=== PATIENT | female | born 1960 | race Caucasian/White ===

== ENCOUNTER → 2020-07-24 | Outpatient (CLI) | payer BC | END | disposition home or self-care (01) | LOC: LABWHC1 09:20 | PROVIDERS: ATTEND Internal Medicine Infectious Disease | DX: Z03.89 Encounter for observation for other suspected diseases and conditions ruled out (principal) | CPT/HCPCS: U0003; C9803 ==

== ENCOUNTER 2023-04-02 13:42 | Emergency (ER) | payer BC ==
--- NOTE | 2023-04-02 14:30 | ED ---
General Adult HPI - General Source: patient, RN notes reviewed Mode of arrival: ambulatory <Addie Seth - Last Filed: 04/02/23 14:25> <Diaz Pisano - Last Filed: 04/02/23 19:40> - General Chief complaint: Recheck/Abnormal Lab/Rx Stated complaint: High blood pressure Time Seen by Provider: 04/02/23 14:25 - History of Present Illness Initial comments: 62-year-old female with no significant past medical history presents the emergency department with a chief complaint of high blood pressure. Patient denies taking any blood pressure medications. Patient denies dizziness, lightheadedness, headache, chest pain, shortness of breath (Addie Seth) This is a 62-year-old female presents emergency Department complaining that her blood pressures been elevated. Patient states she was feeling little dizzy she stood up blood pressure was extremely elevated so she decided come to the emerge ncy department. Patient denies any headache patient denies numbness weakness. Patient denies any chest pain palpitations difficulty breathing shortness of breath. Patient states she has no history of high blood pressure but she does not take her blood pressure regularly. Patient denies any recent fever chills or cough. Patient does complain of a twitching occasionally gets in her lower leg it lasts about 1-2 seconds. Patient states he symptoms been ongoing for over a week intermittently she has not had the symptoms while in the emergency department. Patient denies any injury recently. (Diaz Pisano) - Related Data Previous Rx's Medication Instructions Recorded amLODIPine [Norvasc] 5 mg PO DAILY #30 tab 04/02/23 Allergies Allergy/AdvReac Type Severity Reaction Status Date / Time No Known Allergies Allergy Verified 04/02/23 19:03 Review of Systems ROS Other: All systems not noted in ROS Statement are negative. <Addie Seth - Last Filed: 04/02/23 14:25> ROS Other: All systems not noted in ROS Statement are negative. <Diaz Pisano - Last Filed: 04/02/23 19:40> ROS Statement: Those systems with pertinent positive or pertinent negative responses have been documented in the HPI. Past Medical History Past Medical History: No Reported History History of Any Multi-Drug Resistant Organisms: MRSA Past Surgical History: No Surgical Hx Reported Past Psychological History: No Psychological Hx Reported Smoking Status: Never smoker Past Alcohol Use History: Rare Past Drug Use History: None Reported <MarthacandaceAddie esquivel - Last Filed: 04/02/23 14:25> General Exam <MarthacandaceAddie esquivel - Last Filed: 04/02/23 14:25> <Diaz Pisano - Last Filed: 04/02/23 19:40> - General Exam Comments Initial Comments: Visual Physical Exam Vital signs reviewed General: Well-appearing, nontoxic, no acute distress. Head: Normocephalic, atraumatic Eyes: PERRLA, EOMI ENT: Airway patent Chest: Nonlabored breathing Skin: No visual rash, normal skin tone Neuro: Alert and oriented 3 Musculoskeletal: No gross abnormalities (Addie Seth) GENERAL: Patient is well-developed and well-nourished. Patient is nontoxic and well- hydrated and is in no acute distress. ENT: Neck is soft and supple. No significant lymphadenopathy is noted. Oropharynx is clear. Moist mucous membranes. Neck has full range of motion without eliciting any pain. EYES: The sclera were anicteric and conjunctiva were pink and moist. Extraocular movements were intact and pupils were equal round and reactive to light. Eyelids were unremarkable. PULMONARY: Unlabored respirations. Good breath sounds bilaterally. No audible rales rhonchi or wheezing was noted. CARDIOVASCULAR: There is a regular rate and rhythm without any murmurs gallops or rubs. ABDOMEN: Soft and nontender with normal bowel sounds. SKIN: Skin is clear with no lesions or rashes and otherwise unremarkable. NEUROLOGIC: Patient is alert and oriented x3. Cranial nerves II through XII are grossly intact. Motor and sensory are also intact. Normal speech, volume and content. Symmetrical smile. MUSCULOSKELETAL: Normal extremities with adequate strength and full range of motion. LYMPHATICS: No significant lymphadenopathy is noted PSYCHIATRIC: Normal psychiatric evaluation. (Diaz Pisano) Course Vital Signs 04/02/23 04/02/23 04/02/23 13:45 15:37 15:47 Temperature 99.8 F H 98.2 F Pulse Rate 97 75 78 Respiratory 18 19 17 Rate Blood Pressure 199/118 191/119 163/71 O2 Sat by Pulse 95 95 95 Oximetry 04/02/23 04/02/23 16:36 16:50 Temperature 98.1 F Pulse Rate 71 Respiratory 18 Rate Blood Pressure 167/70 143/68 O2 Sat by Pulse 97 Oximetry Medical Decision Making - Lab Data Result diagrams: 04/02/23 14:30 04/02/23 14:30 <Diaz Pisano - Last Filed: 04/02/23 19:40> - Medical Decision Making Patient's EKG shows a sinus rhythm at 84 bpm WV interval 165 QRSs 80 QT interval 31 QTC is 422. Patient's EKG shows no ST segment elevation or depression. Was pt. sent in by a medical professional or institution (, PA, WING COVERER, urgent care, hospital, or residential...) When possible be specific @ -No Did you speak to anyone other than the patient for history (EMS, parent, family, police, friend...)? What history was obtained from this source @ -No Did you review nursing and triage notes (agree or disagree)? Why? @ -I reviewed and agree with nursing and triage notes Were old charts reviewed (outside hosp., previous admission, EMS record, old EKG, old radiological studies, urgent care reports/EKG's, residential records)? Report findings @ -I reviewed prior lab work and prior radiological studies. Differential Diagnosis (chest pain, altered mental status, abdominal pain women, abdominal pain men, vaginal bleeding, weakness, fever, dyspnea, syncope, headache, dizziness, GI bleed, back pain, seizure, CVA, palpatations, mental health, musculoskeletal)? @ -Differential Dizziness: Benign paroxysmal positional Vertigo, Menieres disease, otitis media, acoustic neuroma, vertebrobasilar insufficiency, cerebellar stroke, encephalitis, hypovolemic, arrhythmia, coronary artery syndrome, anemia, this is not meant to be an all-inclusive list EKG interpreted by me (3pts min.). @ -As above X-rays interpreted by me (1pt min.). @ -Chest x-ray was interpreted by myself I see no acute abnormalities CT interpreted by me (1pt min.). @ -None done U/S interpreted by me (1pt. min.). @ -None done What testing was considered but not performed or refused? (CT, X-rays, U/S, labs)? Why? @ -None What meds were considered but not given or refused? Why? @ -None Did you discuss the management of the patient with other professionals (professionals i.e. Dr., PA, WING COVERER, lab, RT, psych nurse, social media intern, intellectual property lawyer, teacher, giving officer, watch caser)? Give summary @ -No Was smoking cessation discussed for >3mins.? @ -No Was critical care preformed (if so, how long)? @ -No Were there social determinants of health that impacted care today? How? (Homelessness, low income, unemployed, alcoholism, drug addiction, transportation, low edu. Level, literacy, decrease access to med. care, long-term, rehab)? @ -No Was there de-escalation of care discussed even if they declined (Discuss DNR or withdrawal of care, Hospice)? DNR status @ -No What co-morbidities impacted this encounter? (DM, HTN, Smoking, COPD, CAD, Cancer, CVA, ARF, Chemo, Hep., AIDS, mental health diagnosis, sleep apnea, morbid obesity)? @ -None Was patient admitted / discharged? Hospital course, mention meds given and route, prescriptions, significant lab abnormalities, going to OR and other pertinent info. @ -Patient was given hydralazine 10 mg and pressure only given a little so the patient was given a repeat dose of 10 mg. I went back in and reevaluated the patient she was having no symptoms at this time and I discharge the patient I told the patient we'll start her on Norvasc and she states her blood pressure 4 times a day at the same time and then follow up with primary medical care doctor. Patient is to return to the hospital this any chest pain shortness of breath or any new symptoms. Undiagnosed new problem with uncertain prognosis? @ -No Drug Therapy requiring intensive monitoring for toxicity (Heparin, Nitro, Insulin, Cardizem)? @ -No Were any procedures done? @ -No Diagnosis/symptom? @ -Hypertension Acute, or Chronic, or Acute on Chronic? @ -Acute Uncomplicated (without systemic symptoms) or Complicated (systemic symptoms)? @ -Complicated Side effects of treatment? @ -No Exacerbation, Progression, or Severe Exacerbation? @ -No Poses a threat to life or bodily function? How? (Chest pain, [place], [place], pneumonia, PE, COPD, DKA, ARF, appy, cholecystitis, CVA, Diverticulitis, Homicidal, Suicidal, threat to staff... and all critical care pts) @ -No (PisanoDiaz) - Lab Data Lab Results 04/02/23 04/02/23 04/02/23 Range/Units 14:30 14:30 14:30 WBC 10.8 H (3.8-10.6) k/uL RBC 4.74 (3.80-5.40) m/uL Hgb 15.0 (11.4-16.0) gm/dL Hct 44.1 (34.0-46.0) % MCV 93.1 (80.0-100.0) fL MCH 31.7 (25.0-35.0) pg MCHC 34.0 (31.0-37.0) g/dL RDW 13.4 (11.5-15.5) % Plt Count 316 (150-450) k/uL MPV 7.4 Neutrophils % 66 % Lymphocytes % 23 % Monocytes % 5 % Eosinophils % 1 % Basophils % 0 % Neutrophils # 7.1 (1.3-7.7) k/uL Lymphocytes # 2.5 (1.0-4.8) k/uL Monocytes # 0.6 (0-1.0) k/uL Eosinophils # 0.1 (0-0.7) k/uL Basophils # 0.0 (0-0.2) k/uL PT 10.3 (9.0-12.0) sec INR 1.0 (<1.2) APTT 24.1 (22.0-30.0) sec Sodium 140 (137-145) mmol/L Potassium 4.5 (3.5-5.1) mmol/L Chloride 104 (98-107) mmol/L Carbon Dioxide 24 (22-30) mmol/L Anion Gap 12 mmol/L BUN 21 H (7-17) mg/dL Creatinine 0.75 (0.52-1.04) mg/dL Est GFR (CKD-EPI)AfAm >90 (>60 ml/min/1.73 sqM) Est GFR (CKD-EPI)NonAf 87 (>60 ml/min/1.73 sqM) Glucose 104 H (74-99) mg/dL Calcium 10.2 (8.4-10.2) mg/dL Total Bilirubin 0.6 (0.2-1.3) mg/dL AST 25 (14-36) U/L ALT 22 (4-34) U/L Alkaline Phosphatase 102 (38-126) U/L Troponin I (0.000-0.034) ng/mL Total Protein 7.6 (6.3-8.2) g/dL Albumin 4.6 (3.5-5.0) g/dL Urine Color Urine Appearance (Clear) Urine pH (5.0-8.0) Ur Specific [place] (1.001-1.035) Urine Protein (Negative) Urine Glucose (UA) (Negative) Urine Ketones (Negative) Urine Blood (Negative) Urine Nitrite (Negative) Urine Bilirubin (Negative) Urine Urobilinogen (<2.0) mg/dL Ur Leukocyte Esterase (Negative) Urine WBC (0-5) /hpf Ur Squamous Epith Cells (0-4) /hpf Urine Bacteria (None) /hpf Urine Mucus (None) /hpf 04/02/23 04/02/23 Range/Units 14:30 15:32 WBC (3.8-10.6) k/uL RBC (3.80-5.40) m/uL Hgb (11.4-16.0) gm/dL Hct (34.0-46.0) % MCV (80.0-100.0) fL MCH (25.0-35.0) pg MCHC (31.0-37.0) g/dL RDW (11.5-15.5) % Plt Count (150-450) k/uL MPV Neutrophils % % Lymphocytes % % Monocytes % % Eosinophils % % Basophils % % Neutrophils # (1.3-7.7) k/uL Lymphocytes # (1.0-4.8) k/uL Monocytes # (0-1.0) k/uL Eosinophils # (0-0.7) k/uL Basophils # (0-0.2) k/uL PT (9.0-12.0) sec INR (<1.2) APTT (22.0-30.0) sec Sodium (137-145) mmol/L Potassium (3.5-5.1) mmol/L Chloride (98-107) mmol/L Carbon Dioxide (22-30) mmol/L Anion Gap mmol/L BUN (7-17) mg/dL Creatinine (0.52-1.04) mg/dL Est GFR (CKD-EPI)AfAm (>60 ml/min/1.73 sqM) Est GFR (CKD-EPI)NonAf (>60 ml/min/1.73 sqM) Glucose (74-99) mg/dL Calcium (8.4-10.2) mg/dL Total Bilirubin (0.2-1.3) mg/dL AST (14-36) U/L ALT (4-34) U/L Alkaline Phosphatase (38-126) U/L Troponin I <0.012 (0.000-0.034) ng/mL Total Protein (6.3-8.2) g/dL Albumin (3.5-5.0) g/dL Urine Color Light Yellow Urine Appearance Cloudy H (Clear) Urine pH 5.0 (5.0-8.0) Ur Specific [place] 1.012 (1.001-1.035) Urine Protein Negative (Negative) Urine Glucose (UA) Negative (Negative) Urine Ketones Negative (Negative) Urine Blood Negative (Negative) Urine Nitrite Negative (Negative) Urine Bilirubin Negative (Negative) Urine Urobilinogen <2.0 (<2.0) mg/dL Ur Leukocyte Esterase Negative (Negative) Urine WBC 2 (0-5) /hpf Ur Squamous Epith Cells 2 (0-4) /hpf Urine Bacteria Occasional H (None) /hpf Urine Mucus Rare H (None) /hpf Disposition <Addie Seth - Last Filed: 04/02/23 14:25> Is patient prescribed a controlled substance at d/c from ED?: No Time of Disposition: 16:40 <Diaz Pisano - Last Filed: 04/02/23 19:40> Clinical Impression: Hypertension Disposition: HOME SELF-CARE Condition: Good Instructions (If sedation given, give patient instructions): Hypertension (ED) Prescriptions: amLODIPine [Norvasc] 5 mg PO DAILY #30 tab Referrals: Aubrey Smith MD [Primary Care Provider] - 1-2 days
[2023-04-02 15:00] LABS: Basophils % (A) 0 %; Eosinophils # (A) 0.1 k/uL (0-0.7); Eosinophils % (A) 1 %; HCT 44.1 % (34.0-46.0); Lymphocytes # (A) 2.5 k/uL (1.0-4.8); Lymphocytes % (A) 23 %; MCH 31.7 pg (25.0-35.0); MCV 93.1 fL (80.0-100.0); Mean Platelet Volume 7.4; Monocytes # (A) 0.6 k/uL (0-1.0); Monocytes % (A) 5 %; Neutrophils # (A) 7.1 k/uL (1.3-7.7); Neutrophils % (A) 66 %; Platelet Count 316 k/uL (150-450); RBC 4.74 m/uL (3.80-5.40); RDW 13.4 % (11.5-15.5); WBC 10.8 k/uL (3.8-10.6)
[2023-04-02 15:15] LABS: Partial Thromboplastin Time 24.1 sec (22.0-30.0); Prothrombin Time 10.3 sec (9.0-12.0)
[2023-04-02] MEDS ORDERED: hydrALAZINE HCL 20 MG/ML 1 ML VIAL IVP STA ×2 (15:15→16:11)
[2023-04-02] MEDS ORDERED: SODIUM CHLORIDE 0.9% 500 ML 500 ML IV ONE (15:16)
[2023-04-02 15:19] LABS: ALT 22 U/L (4-34); AST 25 U/L (14-36); African American GFR (CKD) >90 (>60 ml/min/1.73 sqM); Albumin 4.6 g/dL (3.5-5.0); Alkaline Phosphatase 102 U/L (38-126); Anion Gap 12 mmol/L; Blood Urea Nitrogen 21 mg/dL (7-17); Calcium 10.2 mg/dL (8.4-10.2); Carbon Dioxide 24 mmol/L (22-30); Chloride 104 mmol/L (98-107); Glucose 104 mg/dL (74-99); Non-African American GFR(CKD) 87 (>60 ml/min/1.73 sqM); Potassium 4.5 mmol/L (3.5-5.1); Sodium 140 mmol/L (137-145); Total Bilirubin 0.6 mg/dL (0.2-1.3); Total Protein 7.6 g/dL (6.3-8.2)
[2023-04-02 16:01] LABS: Appearance,Urine Cloudy (Clear); Bacteria,Urine Occasional /hpf; Bilirubin,Urine Negative (Negative); Blood,Urine Negative (Negative); Color,Urine Light Yellow; Glucose,Urine (UA) Negative (Negative); Ketones,Urine Negative (Negative); Leukocyte Esterase,Urine Negative (Negative); Mucus,Urine Rare /hpf; Nitrite,Urine Negative (Negative); Protein,Urine Negative (Negative); Specific Gravity,Urine 1.012 (1.001-1.035); Squamous Epithelial Cell,Urine 2 /hpf (0-4); Urobilinogen,Urine <2.0 mg/dL (<2.0); WBC,Urine 2 /hpf (0-5)
--- NOTE | 2023-04-02 16:14 | XR ---
EXAMINATION TYPE: XR chest 2V DATE OF EXAM: 04/02/2023 COMPARISON: NONE HISTORY: Difficulty in breathing. Hypertension. TECHNIQUE: Frontal and lateral views of the chest are obtained. FINDINGS: There is no focal air space opacity, pleural effusion, or pneumothorax seen. The cardiac silhouette size is upper limits of normal. The osseous structures are intact. Cholecystectomy clips are present. IMPRESSION: No acute cardiopulmonary process.
[2023-04-02 16:37] VITALS: PULSE 71; RESP 18; TEMP 98.1
[2023-04-02 16:50] VITALS: BP 143/68
== END 2023-04-02 16:55 | disposition home or self-care (01) ==
LOC: EC 13:42
DX: I10 Essential (primary) hypertension (principal)
CPT/HCPCS: 36415; 93005; 80053; 84484; 85025; 85610; 85730; 81001; 71046; 99284; 96374; 96376; 96361; J0360

== ENCOUNTER 2023-04-02 18:56 | Emergency (ER) | payer BC ==
--- NOTE | 2023-04-02 20:05 | ED ---
Dizziness HPI - General Source: patient, RN notes reviewed Mode of arrival: ambulatory <Karla Saldana - Last Filed: 04/02/23 20:00> - General Source: patient, RN notes reviewed, old records reviewed <Justin Zeng - Last Filed: 04/02/23 23:58> - General Chief Complaint: Dizziness Stated Complaint: R leg weakness dizzy Time Seen by Provider: 04/02/23 20:00 - History of Present Illness Initial Comments: Patient is a 62-year-old female presents to the emergency department for lightheadedness. Patient was discharged from emergency department to hours ago for dizziness and high blood pressure. She has no known history of high blood pressure. Patient got home she felt very lightheaded and fell. She did not hit her head or lose consciousness. She does not use blood thinners. (Karla Saldana) Patient was seen as a quick note. Was seen here earlier for hypertension and lightheadedness which improved from when home and expressed another episode. Is not on blood thinners. States she felt lightheaded suddenly at home and then fell. Has been having chronic right lower extremity weakness which seems to be primarily at the knee she states. Denies any back pain or injury. Denies any current complaints of lightheadedness. Denies any sensory deficits. There is any no injuries. Patient diagnosed with hypertension earlier and placed on blood pressure medications. Uncertain if this injury to her symptoms. Blood pressure is the same as it was on discharge. Presents for reevaluation at this time. Denies any fevers, chills, cough. Denies any chest pain or shortness of breath. Denies any abdominal pain, nausea, vomiting.When I asked further about the patient's right lower extremity weakness and pain, seems to be more progre ssive as it has been present for multiple weeks. Thinks it may have been a little bit worse which caused her to fall earlier. Denies any current dizziness. (Justin Zeng) - Related Data Previous Rx's Medication Instructions Recorded amLODIPine [Norvasc] 5 mg PO DAILY #30 tab 04/02/23 Allergies Allergy/AdvReac Type Severity Reaction Status Date / Time No Known Allergies Allergy Verified 04/02/23 19:03 Review of Systems ROS Other: All systems not noted in ROS Statement are negative. <Karla Saldana - Last Filed: 04/02/23 20:00> ROS Other: All systems not noted in ROS Statement are negative. <Justin Zeng - Last Filed: 04/02/23 23:58> ROS Statement: Those systems with pertinent positive or pertinent negative responses have been documented in the HPI. Review of Systems: CONST: Denies fever EYES: Denies blurry vision ENT: Denies nasal congestion C/V: Denies Chest pain RESP: Denies shortness of breath GI: Denies abdominal pain : Denies dysuria SKIN: Denies rash. MSK: Endorses right knee pain, weakness. NEURO: Denies headache (Justin Zeng) Past Medical History Past Medical History: No Reported History History of Any Multi-Drug Resistant Organisms: MRSA Past Surgical History: No Surgical Hx Reported Past Psychological History: No Psychological Hx Reported Smoking Status: Never smoker Past Alcohol Use History: Rare Past Drug Use History: None Reported <ShanaKarla ahn - Last Filed: 04/02/23 20:00> General Exam <ShanaKarla ahn - Last Filed: 04/02/23 20:00> <Justin Zeng - Last Filed: 04/02/23 23:58> - General Exam Comments Initial Comments: Visual Physical Exam Vital signs reviewed General: Well-appearing, nontoxic, no acute distress. Head: Normocephalic, atraumatic Eyes: PERRLA, EOMI ENT: Airway patent Chest: Nonlabored breathing Skin: No visual rash, normal skin tone Neuro: Alert and oriented 3 Musculoskeletal: No gross abnormalities (ShanaJuanKarla) General: Appears in no acute distress. HEAD: Normal with no signs of head trauma. EYES: PERRLA, EOMI, conjunctiva normal, no discharge. Pupils 3 mm and equal bilaterally. ENT: Hearing grossly intact, normal oropharynx. RESPIRATORY: Clear breath sounds bilaterally. No wheezes, rales, or rhonchi. C/V: Regular rate and rhythm. S1 and S2 auscultated, no edema, peripheral pulses 2+ and intact throughout ABD: Abd is soft, nontender, nondistended EXT: Normal range of motion, no obvious deformity. Mild to palpation along the bilateral joint lines of the right knee. No midline lumbar, thoracic, cervical spine tenderness to palpation. SKIN: No rashes or lesions observed on exposed skin. NEURO: Alert and oriented x 4. Cranial nerves II-XII intact. No focal sensory or strength deficits. NIH of 0. GCS of 15. Patient's gait has a right lower extremity limp. (Justin Zeng) Course Vital Signs 04/02/23 04/02/23 19:00 23:31 Temperature 97.9 F 98.6 F Pulse Rate 99 78 Respiratory 18 16 Rate Blood Pressure 164/76 136/78 O2 Sat by Pulse 95 98 Oximetry Medical Decision Making - Lab Data Result diagrams: 04/02/23 21:35 - EKG Data -: EKG Interpreted by Me <Justin Zeng - Last Filed: 04/02/23 23:58> - Medical Decision Making Was pt. sent in by a medical professional or institution (, PA, MAINTENANCE AND OPERATIONS SUPERVISOR, urgent care, hospital, or long term...) When possible be specific @ -No Did you speak to anyone other than the patient for history (EMS, parent, family, police, friend...)? What history was obtained from this source @ -No Did you review nursing and triage notes (agree or disagree)? Why? @ -I reviewed and agree with nursing and triage notes Were old charts reviewed (outside hosp., previous admission, EMS record, old EKG, old radiological studies, urgent care reports/EKG's, long term records)? Report findings @ -Reviewed chart from earlier today as this is a repeat visit. Differential Diagnosis (chest pain, altered mental status, abdominal pain women, abdominal pain men, vaginal bleeding, weakness, fever, dyspnea, syncope, headache, dizziness, GI bleed, back pain, seizure, CVA, palpatations, mental health, musculoskeletal)? @ -Differential Dizziness: Benign paroxysmal positional Vertigo, Menieres disease, otitis media, acoustic neuroma, vertebrobasilar insufficiency, cerebellar stroke, encephalitis, hypovolemic, arrhythmia, coronary artery syndrome, anemia, this is not meant to be an all-inclusive list EKG interpreted by me (3pts min.). @ -As above X-rays interpreted by me (1pt min.). @ -Chest x-ray shows no obvious acute cardio pulmonary process. Right knee, and pelvis x-ray revealed no acute injury or acute process. Patient has a history arthritis in the right knee. CT interpreted by me (1pt min.). @ -CT brain shows no obvious intracranial process. Lumbar spine CT shows degenerative changes at almost every level. Possible source for mild nerve compression which could be contributing to symptoms. U/S interpreted by me (1pt. min.). @ -None done What testing was considered but not performed or refused? (CT, X-rays, U/S, labs)? Why? @ -None What meds were considered but not given or refused? Why? @ -None Did you discuss the management of the patient with other professionals (professionals i.e. , PA, MAINTENANCE AND OPERATIONS SUPERVISOR, lab, RT, psych nurse, drug abuse social worker, engineer gas pumping station, teacher, court collections officer, caser shoe parts)? Give summary @ -No Was smoking cessation discussed for >3mins.? @ -No Was critical care preformed (if so, how long)? @ -No Were there social determinants of health that impacted care today? How? (Homelessness, low income, unemployed, alcoholism, drug addiction, transportation, low edu. Level, literacy, decrease access to med. care, group home, r ehab)? @ -No Was there de-escalation of care discussed even if they declined (Discuss DNR or withdrawal of care, Hospice)? DNR status @ -No What co-morbidities impacted this encounter? (DM, HTN, Smoking, COPD, CAD, Cancer, CVA, ARF, Chemo, Hep., AIDS, mental health diagnosis, sleep apnea, morbid obesity)? @ -None Was patient admitted / discharged? Hospital course, mention meds given and route, prescriptions, significant lab abnormalities, going to OR and other pertinent info. @ -Based on the patient's presentation and physical exam, was diagnosed with hypertension poorly and placed on Norvasc. Returns because she had a lightheadedness episode and fell. Did not injure herself. Exam is unchanged. Has chronic right knee and right leg issues for the last few weeks. Has known arthritis in the right knee. Right leg symptoms seem to be chronic, his neuro exam is unremarkable but we will obtain CT brain as well as lumbar spine CT in addition to x-rays of the chest, pelvis, right knee. We'll repeat laboratory studies and EKG. Patient was in agreement with this plan. She'll be given a 1 L fluid bolus. Blood pressure unchanged from earlier. Patient's labs are unremarkable, however CBC needs to be recent. Patient does not want to wait. Patient's electrolytes are unremarkable. Patient's imaging shows no acute process but she does have degenerative changes and lumbar spine which could be contributing to her symptoms as well as arthritis in the right knee. On reevaluation, patient is feeling improved. Dizziness is resolved. We discussed her workup. She does not want to wait for repeat blood work which I think is reasonable as she just had it done earlier. We discussed her results and I believe that her degeneration in her lumbar spine and possible nerve impingement may be contributing to her symptoms as well as her right knee arth ritis. She has no signs of cauda equina syndrome, denying urinary bowel incontinence, denying paralysis, denying saddle anesthesias. Discuss follow-up with a spinal doctor, and she will be given follow-up for it. She was in agreement this plan. She'll like to go home at this time. I recommended holding the blood pressure medication in case this take injury to her lightheadedness earlier, however she was having symptoms before this. Strict return precautions discussed. Recommend following up with her PCP. She was in agreement this plan. I instructed the patient to follow up with their PCP in the next 1-3 days. I provided contact information for follow up with ortho. I explained that the patient should return to the emergency department if they experience any worsening symptoms. Strict return precautions were discussed with the patient. The patient expressed understanding of these instructions. I answered all questions that the patient had. The patient was discharged home in good condition with their prescriptions and follow up information. Undiagnosed new problem with uncertain prognosis? @ -No Drug Therapy requiring intensive monitoring for toxicity (Heparin, Nitro, Insulin, Cardizem)? @ -No Were any procedures done? @ -No Diagnosis/symptom? @ -Lightheadedness, chronic right leg intermittent weakness, knee pain Acute, or Chronic, or Acute on Chronic? @ -Acute on chronic Uncomplicated (without systemic symptoms) or Complicated (systemic symptoms)? @ -Uncomplicated Side effects of treatment? @ -No Exacerbation, Progression, or Severe Exacerbation? @ -No Poses a threat to life or bodily function? How? (Chest pain, [place], [place], pneumonia, PE, COPD, DKA, ARF, appy, cholecystitis, CVA, Diverticulitis, Homicidal, Suicidal, threat to staff... and all critical care pts) @ -No Diagnosis/symptom? @ -Lumbar spine degenerative changes, concern for radiculopathy Acute, or Chronic, or Acute on Chronic? @ -Acute Uncomplicated (without systemic symptoms) or Complicated (systemic symptoms)? @ -Complicated Side effects of treatment? @ -none Exacerbation, Progression, or Severe Exacerbation] @ -no Poses a threat to life or bodily function? @ -no (Justin Zeng) - Lab Data Lab Results 04/02/23 04/02/23 Range/Units 21:35 21:35 PT 10.4 (9.0-12.0) sec INR 1.0 (<1.2) Sodium 140 (137-145) mmol/L Potassium 4.1 (3.5-5.1) mmol/L Chloride 106 (98-107) mmol/L Carbon Dioxide 21 L (22-30) mmol/L Anion Gap 13 mmol/L BUN 20 H (7-17) mg/dL Creatinine 0.63 (0.52-1.04) mg/dL Est GFR (CKD-EPI)AfAm >90 (>60 ml/min/1.73 sqM) Est GFR (CKD-EPI)NonAf >90 (>60 ml/min/1.73 sqM) Glucose 111 H (74-99) mg/dL Calcium 10.3 H (8.4-10.2) mg/dL Total Bilirubin 0.7 (0.2-1.3) mg/dL AST 26 (14-36) U/L ALT 23 (4-34) U/L Alkaline Phosphatase 110 (38-126) U/L Total Protein 7.9 (6.3-8.2) g/dL Albumin 4.8 (3.5-5.0) g/dL - EKG Data EKG Comments: 12-lead Electrocardiogram Interpretation Note EKG was reviewed and interpreted by myself. 12-lead ECG performed at 2135 is interpreted by me as revealing normal sinus rhythm at a rate of 92 beats per minute. Umpire is normal. OH interval is 156 ms, QRS duration is 82 ms, QTc is 418 ms.. There were no ST or T wave abnormalities to suggest myocardial ischemia or injury. R wave progression across the precordium was satisfactory. By my interpretation this EKG is non-diagnostic for acute ischemia. (Justin Zeng) Disposition <Karla Saldana - Last Filed: 05/11/23 20:00> Is patient prescribed a controlled substance at d/c from ED?: No Time of Disposition: 23:21 <Justin Zeng - Last Filed: 04/02/23 23:58> Clinical Impression: Transient right leg weakness, Lumbar radiculopathy, Knee pain, Lightheaded Disposition: HOME SELF-CARE Condition: Good Instructions (If sedation given, give patient instructions): Lumbar Radiculopathy (ED) Referrals: Aubrey Smith MD [Primary Care Provider] - 1-2 days John Jacobs DO [Doctor of Osteopathic Medicine] - 1-2 days
[2023-04-02] MEDS ORDERED: SODIUM CHLORIDE 0.9% 500 ML 500 ML IV STA (21:35)
[2023-04-02 22:19] LABS: Prothrombin Time 10.4 sec (9.0-12.0)
--- NOTE | 2023-04-02 22:21 | CT ---
EXAM: CT Head Without Intravenous Contrast CLINICAL HISTORY: ITS.REASON CT Reason: fall, weakness RLE 1 week TECHNIQUE: Axial computed tomography images of the head/brain without intravenous contrast. CTDI is 49.27 mGy and DLP is 1140.6 mGy-cm. This CT exam was performed using one or more of the following dose reduction techniques: automated exposure control, adjustment of the mA and/or kV according to patient size, and/or use of iterative reconstruction technique. COMPARISON: No relevant prior studies available. FINDINGS: Brain: Unremarkable. No hemorrhage. No significant white matter disease. No edema. Zepeda-white matter differentiation maintained. Ventricles: Unremarkable. No hydrocephalus. Bones/joints: Unremarkable. No acute fracture. Soft tissues: Unremarkable. Vasculature: Intracranial atherosclerosis. Sinuses: Unremarkable as visualized. No acute sinusitis. Mastoid air cells: Unremarkable as visualized. No mastoid effusion. IMPRESSION: No acute intracranial process.
--- NOTE | 2023-04-02 22:25 | CT ---
EXAM: CT Lumbar Spine Without Intravenous Contrast CLINICAL HISTORY: ITS.REASON CT Reason: fall, weakness RLE 1 week TECHNIQUE: Axial computed tomography images of the lumbar spine without intravenous contrast. CTDI is 55.849 mGy and DLP is 1797.6 mGy-cm. This CT exam was performed using one or more of the following dose reduction techniques: automated exposure control, adjustment of the mA and/or kV according to patient size, and/or use of iterative reconstruction technique. COMPARISON: No relevant prior studies available. FINDINGS: There is normal lumbar lordosis and vertebral body height. There is no evidence of acute fracture or traumatic subluxation. There is mild degenerative disc disease at L2-L3 and L4-L5. There is multilevel facet degeneration associated with trace degenerative anterolisthesis of L4. L1-L2: Mild disc bulging. No canal or foraminal narrowing. L2-L3: Mild degenerative disc disease with disc bulging. Ligamentum flavum thickening. Mild canal stenosis and mild bilateral foraminal narrowing. L3-L4: Mild disc bulging. Facet degeneration and ligamentum flavum thickening. Minimal canal narrowing. Mild bilateral foraminal narrowing, right greater than left. L4-L5: Mild degenerative disc disease. Facet degeneration, ligamentum flavum thickening, and trace anterolisthesis of L4. Mild disc bulging. Mild canal stenosis. Moderate bilateral foraminal narrowing. L5-S1: Facet degeneration. No spinal canal or left foraminal narrowing. Mild right foraminal narrowing due to facet joint osteophytes. Sacroiliac joints are normally aligned. There is no evidence of acute sacral fracture. Paravertebral soft tissues are unremarkable. Gallbladder surgically absent. There is aortoiliac atherosclerosis without aneurysm. IMPRESSION: 1. No acute osseous findings. 2. Degenerative changes, as above. 3. At L2-L3, mild bilateral foraminal narrowing. 4. At L3-L4, mild right greater than left foraminal narrowing. 5. At L4-L5 moderate bilateral foraminal narrowing. 6. At L5-S1, mild right foraminal narrowing.
[2023-04-02 22:34] LABS: ALT 23 U/L (4-34); AST 26 U/L (14-36); African American GFR (CKD) >90 (>60 ml/min/1.73 sqM); Albumin 4.8 g/dL (3.5-5.0); Alkaline Phosphatase 110 U/L (38-126); Anion Gap 13 mmol/L; Blood Urea Nitrogen 20 mg/dL (7-17); Calcium 10.3 mg/dL (8.4-10.2); Carbon Dioxide 21 mmol/L (22-30); Chloride 106 mmol/L (98-107); Glucose 111 mg/dL (74-99); Non-African American GFR(CKD) >90 (>60 ml/min/1.73 sqM); Potassium 4.1 mmol/L (3.5-5.1); Sodium 140 mmol/L (137-145); Total Bilirubin 0.7 mg/dL (0.2-1.3); Total Protein 7.9 g/dL (6.3-8.2)
--- NOTE | 2023-04-02 22:42 | XR ---
EXAM: XR Right Knee, 3 Views CLINICAL HISTORY: ITS.REASON XR Reason: fall, weakness RLE 1 week TECHNIQUE: Three views of the right knee. COMPARISON: No relevant prior studies available. FINDINGS: Bones/joints: Tricompartment osteoarthritis, moderate in the patellofemoral and medial femorotibial joints. Trace joint effusion. No acute fracture or dislocation. Soft tissues: Unremarkable. IMPRESSION: No acute findings in the right knee.
--- NOTE | 2023-04-02 22:44 | XR ---
EXAM: XR Pelvis, 1 or 2 Views CLINICAL HISTORY: ITS.REASON XR Reason: fall, weakness RLE 1 week TECHNIQUE: Frontal view of the pelvis. COMPARISON: No relevant prior studies available. FINDINGS: Bones/joints: No acute fracture. No dislocation. Mild pelvic enthesopathy. Soft tissues: Unremarkable. IMPRESSION: No acute osseous findings.
[2023-04-02 23:32] VITALS: TEMP 98.6
[2023-04-03 00:09] VITALS: BP 180/90; PULSE 86; RESP 18
== END 2023-04-03 00:08 | disposition home or self-care (01) ==
LOC: EC 18:56
DX: R53.1 Weakness (principal); M54.16 Radiculopathy, lumbar region; R42 Dizziness and giddiness; I10 Essential (primary) hypertension
CPT/HCPCS: 36415; 70450; 72131; 72170; 80053; 85610; 93005; 99285

== ENCOUNTER 2023-04-08 09:44 | Inpatient (IN) | payer BC ==
[2023-04-08 13:29] LABS: Basophils % (A) 1 %; Eosinophils # (A) 0.1 k/uL (0-0.7); Eosinophils % (A) 1 %; HCT 46.1 % (34.0-46.0); HGB 15.6 gm/dL (11.4-16.0); Lymphocytes # (A) 2.9 k/uL (1.0-4.8); Lymphocytes % (A) 30 %; MCH 32.3 pg (25.0-35.0); MCHC 33.7 g/dL (31.0-37.0); MCV 95.7 fL (80.0-100.0); Mean Platelet Volume 7.7; Monocytes # (A) 0.5 k/uL (0-1.0); Monocytes % (A) 5 %; Neutrophils # (A) 5.9 k/uL (1.3-7.7); Neutrophils % (A) 60 %; Platelet Count 287 k/uL (150-450); RBC 4.82 m/uL (3.80-5.40); RDW 12.9 % (11.5-15.5); WBC 9.9 k/uL (3.8-10.6)
[2023-04-08 13:41] LABS: ALT 31 U/L (4-34); African American GFR (CKD) >90 (>60 ml/min/1.73 sqM); Albumin 4.7 g/dL (3.5-5.0); Anion Gap 10 mmol/L; Blood Urea Nitrogen 17 mg/dL (7-17); Carbon Dioxide 27 mmol/L (22-30); Chloride 103 mmol/L (98-107); Creatine Kinase 38 U/L (30-135); Glucose 102 mg/dL (74-99); INR 0.9 (<1.2); Non-African American GFR(CKD) >90 (>60 ml/min/1.73 sqM); Partial Thromboplastin Time 22.3 sec (22.0-30.0); Sodium 140 mmol/L (137-145); Total Bilirubin 0.9 mg/dL (0.2-1.3); Total Protein 7.6 g/dL (6.3-8.2)
[2023-04-08 13:46] LABS: AST 35 U/L (14-36); Alkaline Phosphatase 89 U/L (38-126); Potassium 4.4 mmol/L (3.5-5.1)
--- NOTE | 2023-04-08 14:05 | ED ---
General Adult HPI - General Chief complaint: Neuro Symptoms/Deficit Stated complaint: Recheck Time Seen by Provider: 04/08/23 12:02 Source: patient Mode of arrival: ambulatory Limitations: no limitations - History of Present Illness Initial comments: Dictation was produced using [employer] dictation software. please excuse any grammatical, word or spelling errors. Chief Complaint: 62-year-old female presents to the emergency department for right-sided weakness History of Present Illness: 62-year-old female she presents emergency Department with 2-3 days of right-sided weakness. Patient is here in emergency department 5 days ago. She was seen for hypertension and also dizziness. She was prescribed blood pressure medications on Thursday. After starting those medications began having right-sided weakness to her right arm and right leg. States she has difficulty walking. Denies any numbness or paresthesias. No vision changes. Patient denies any pain complaints. The ROS documented in this emergency department record has been reviewed and confirmed by me. Those systems with pertinent positive or negative responses have been documented in the HPI. All other systems are other negative and/or noncontributory. - Related Data Home Medications Medication Instructions Recorded Confirmed Meloxicam [Mobic] 15 mg PO HS 04/08/23 04/08/23 Previous Rx's Medication Instructions Recorded amLODIPine [Norvasc] 5 mg PO DAILY #30 tab 04/02/23 Allergies Allergy/AdvReac Type Severity Reaction Status Date / Time No Known Allergies Allergy Verified 04/08/23 12:50 Review of Systems ROS Statement: Those systems with pertinent positive or pertinent negative responses have been documented in the HPI. ROS Other: All systems not noted in ROS Statement are negative. Past Medical History Past Medical History: No Reported History History of Any Multi-Drug Resistant Organisms: MRSA Past Surgical History: Cholecystectomy Past Psychological History: No Psychological Hx Reported Smoking Status: Never smoker Past Alcohol Use History: Rare Past Drug Use History: None Reported General Exam - General Exam Comments Initial Comments: PHYSICAL EXAM: General Impression: Alert and oriented x3, not in acute distress HEENT: Normocephalic atraumatic, extra-ocular movements intact, pupils equal and reactive to light bilaterally, mucous membranes moist. Cardiovascular: Heart regular rate and rhythm Chest: Able to complete full sentences, no retractions, no tachypnea Abdomen: abdomen soft, non-tender, non-distended, no organomegaly Musculoskeletal: Pulses present and equal in all extremities, no peripheral edema Motor: no focal deficits noted Neurological: CN II-XII grossly intact, no focal motor or sensory deficits noted, NIH 0, she does have difficulty with ambulation with noticeable weakness with right lower extremity Skin: Intact with no visualized rashes Psych: Normal affect and mood Limitations: no limitations Course Vital Signs 04/08/23 09:53 Temperature 97.9 F Pulse Rate 61 Respiratory 18 Rate Blood Pressure 152/75 O2 Sat by Pulse 95 Oximetry Medical Decision Making - Medical Decision Making Was pt. sent in by a medical professional or institution (, PA, PULVERIZER OPERATOR, urgent care, hospital, or assisted...) When possible be specific @ -Allegedly she was sent here by primary care doctor Did you speak to anyone other than the patient for history (EMS, parent, family, police, friend...)? What history was obtained from this source @ -I did speak with Dr. Smith who saw her in the office told her to come to the emergency room states that he was concerned that she was having a cerebrovascular accident Did you review nursing and triage notes (agree or disagree)? Why? @ -I reviewed and agree with nursing and triage notes Were old charts reviewed (outside hosp., previous admission, EMS record, old EKG, old radiological studies, urgent care reports/EKG's, assisted records)? Report findings @ -No old charts were reviewed Differential Diagnosis (chest pain, altered mental status, abdominal pain women, abdominal pain men, vaginal bleeding, musculoskeletal, weakness, fever, dyspnea, syncope, headache, dizziness, GI bleed, back pain, seizure, CVA, palpatations, mental health)? @ - Differential CVA: Ischemic stroke, hemorrhagic stroke, brain tumor, atypical migraine, Wernicke's encephalopathy, seizure, multiple sclerosis, meningitis, encephalitis, hypoglycemia, Guillain-Gil, electrolytes disturbance, myasthenia gravis.... This is not meant to be an all-inclusive list EKG interpreted by me (3pts min.). @ -My EKG interpretation: Ventricular rate 50, sinus bradycardia,. 170, QRS 83, QTc 445. No [place] prolongation, no QTC prolongation, no ST or T-wave changes noted. Overall, this EKG is unremarkable X-rays interpreted by me (1pt min.). @ -Chest x-ray shows no acute processes CT interpreted by me (1pt min.). @ -Computed tomography scan the brain shows hypodense region in the left fro ntal lobe suggesting subacute ischemia U/S interpreted by me (1pt. min.). @ -None done What testing was considered but not performed or refused? (CT, X-rays, U/S, labs)? Why? @ -None What meds were considered but not given or refused? Why? @ -Thrombolytics was considered however patient outside the window Did you discuss the management of the patient with other professionals (professionals i.e. DrArlette, PA, PULVERIZER OPERATOR, lab, RT, psych nurse, social worker health services, door to door fundraising collector, teacher, foreign service officer, therapeutic case manager)? Give summary @ -Case discussed with Dr. Smith regarding her CT. He is willing to accept patients care for admission. Case also discussed with radiologist regarding patient's CT brain interpretation Was smoking cessation discussed for >3mins.? @ -No Was critical care preformed (if so, how long)? @ -No Were there social determinants of health that impacted care today? How? (Homelessness, low income, unemployed, alcoholism, drug addiction, transportation, low edu. Level, literacy, decrease access to med. care, group home, rehab)? @ -No Was there de-escalation of care discussed even if they declined (Discuss DNR or withdrawal of care, Hospice)? DNR status @ -No What co-morbidities impacted this encounter? (DM, HTN, Smoking, COPD, CAD, Cancer, CVA, ARF, Chemo, Hep., AIDS, mental health diagnosis, sleep apnea, morbid obesity)? @ -None Was patient admitted / discharged? Hospital course, mention meds given and route, prescriptions, significant lab abnormalities, going to OR and other pertinent info. @ -Gnw-xizn-jiv female presents to the emergency department for right lower extremity weakness. Vital signs stable. Patient has a minimallyright lower extremity weakness. Computed tomography scan shows hypodensity that slightly subacute. Patient be admitted she is given aspirin consultation to neurology Undiagnosed new problem with uncertain prognosis? @ -No Drug Therapy requiring intensive monitoring for toxicity (Heparin, Nitro, Insulin, Cardizem)? @ -No Were any procedures done? @ -No Diagnosis/symptom? Acute, or Chronic, or Acute on Chronic? Uncomplicated (without systemic symptoms) or Complicated (systemic symptoms)? @ -Subacute cerebral vascular accident Side effects of treatment? @ -No Exacerbation, Progression, or Severe Exacerbation? @ -No Poses a threat to life or bodily function? How? (Chest pain, [place], [place], pneumonia, PE, COPD, DKA, ARF, appy, cholecystitis, CVA, Diverticulitis, Homicidal, Suicidal, threat to staff... and all critical care pts) @ -yes - Lab Data Result diagrams: 04/08/23 13:18 04/08/23 13:18 Lab Results 04/08/23 04/08/23 04/08/23 Range/Units 13:18 13:18 13:18 WBC 9.9 (3.8-10.6) k/uL RBC 4.82 (3.80-5.40) m/uL Hgb 15.6 (11.4-16.0) gm/dL Hct 46.1 H (34.0-46.0) % MCV 95.7 (80.0-100.0) fL MCH 32.3 (25.0-35.0) pg MCHC 33.7 (31.0-37.0) g/dL RDW 12.9 (11.5-15.5) % Plt Count 287 (150-450) k/uL MPV 7.7 Neutrophils % 60 % Lymphocytes % 30 % Monocytes % 5 % Eosinophils % 1 % Basophils % 1 % Neutrophils # 5.9 (1.3-7.7) k/uL Lymphocytes # 2.9 (1.0-4.8) k/uL Monocytes # 0.5 (0-1.0) k/uL Eosinophils # 0.1 (0-0.7) k/uL Basophils # 0.0 (0-0.2) k/uL PT 10.0 (9.0-12.0) sec INR 0.9 (<1.2) APTT 22.3 (22.0-30.0) sec Sodium 140 (137-145) mmol/L Potassium 4.4 (3.5-5.1) mmol/L Chloride 103 (98-107) mmol/L Carbon Dioxide 27 (22-30) mmol/L Anion Gap 10 mmol/L BUN 17 (7-17) mg/dL Creatinine 0.65 (0.52-1.04) mg/dL Est GFR (CKD-EPI)AfAm >90 (>60 ml/min/1.73 sqM) Est GFR (CKD-EPI)NonAf >90 (>60 ml/min/1.73 sqM) Glucose 102 H (74-99) mg/dL Calcium 10.0 (8.4-10.2) mg/dL Total Bilirubin 0.9 (0.2-1.3) mg/dL AST 35 (14-36) U/L ALT 31 (4-34) U/L Alkaline Phosphatase 89 (38-126) U/L Creatine Kinase 38 (30-135) U/L Total Protein 7.6 (6.3-8.2) g/dL Albumin 4.7 (3.5-5.0) g/dL Disposition Clinical Impression: Cerebrovascular accident (CVA) Disposition: ADMITTED IP TO THIS HOSP Condition: Fair Referrals: Aubrey Smith MD [Primary Care Provider] - 1-2 days Decision Time: 14:50
--- NOTE | 2023-04-08 14:33 | XR ---
EXAMINATION TYPE: XR chest 2V DATE OF EXAM: 04/08/2023 2:20 PM COMPARISON: Chest radiographs from 04/02/2023. TECHNIQUE: XR chest 2V Frontal and lateral views of the chest. CLINICAL INDICATION:Female, 62 years old with history of altered mental status; FINDINGS: Lungs/Pleura: There is no evidence of pleural effusion, focal consolidation, or pneumothorax. Pulmonary vascularity: Unremarkable. Heart/mediastinum: Cardiomediastinal silhouette is unremarkable. Musculoskeletal: No acute osseous pathology. Mild degenerative changes of the thoracic spine. Other: Surgical clips in the upper abdomen. IMPRESSION: No acute cardiopulmonary disease/process.
--- NOTE | 2023-04-08 14:41 | CT ---
EXAMINATION TYPE: CT brain wo con CT DLP: 1098.4 mGycm, Automated exposure control for dose reduction was used. DATE OF EXAM: 04/08/2023 2:20 PM COMPARISON: CT brain 04/02/2023. CLINICAL INDICATION:Female, 62 years old with history of neuro, Right sided weakness, recheck TECHNIQUE: Brain: Multiple axial CT images of the brain were obtained without IV contrast. Coronal and sagittal reformats reviewed. FINDINGS: Brain: Extra-axial spaces: No abnormal extra-axial fluid collections. Ventricular system: Within normal limits Cerebral parenchyma: No acute intraparenchymal hemorrhage or mass effect. New region of hypoattenuat ion in the medial aspect of the left frontal lobe The remainder of the garcia-white junctions are well differentiated. Cerebellum: Unremarkable. Mass effect: No evidence of midline shift. Intracranial vasculature: Atherosclerotic calcifications of the intracranial vessels. Soft tissues: Normal. Calvarium/osseous structures: No depressed skull fracture. Paranasal sinuses and mastoid air cells: Clear Visualized orbits: Orbital contents are intact. IMPRESSION: New hypodense region within the medial aspect of the left frontal lobe from examination on 04/02/2023 which raises concern for subacute ischemia in the left anterior cerebral artery distribution. Findings called to and discussed with Dr. Raygoza at 2:37 PM on 04/08/2023.
[2023-04-08] MEDS ORDERED: ASPIRIN 81 MG PO STA (14:47)
[2023-04-08] MEDS ORDERED: NALOXONE 0.4 MG/ML 1 ML VIAL IV PRN (14:54)
[2023-04-08 16:31] LABS: Glucose,Whole Blood 98 mg/dL (70-110)
[2023-04-08] MEDS: SODIUM CHLORIDE 0.9% 1,000 ML IV SCH (16:47)
[2023-04-08] MEDS: LOSARTAN 50 MG TAB PO SCH (17:29)
[2023-04-08] MEDS ORDERED: CLOPIDOGREL 75 MG TAB PO STA (17:55)
--- NOTE | 2023-04-08 19:37 | CT ---
EXAMINATION TYPE: CT angio head neck DATE OF EXAM: 04/08/2023 HISTORY: CVA. COMPARISON: None. CT DLP: 648 mGycm. Automated Exposure Control for Dose Reduction was Utilized. TECHNIQUE: CTA scan of the head and neck is performed with IV Contrast, patient injected with 65ML m L of Isovue 370, axial images are obtained, coronal and sagittal reformatted images are reviewed. 3D reconstructed images are created on an independent workstation and reviewed. FINDINGS: Carotid/Vascular Structures: Three-vessel origin from the aortic arch. No significant stenosis. Emily l origin right common carotid artery from the right brachiocephalic artery. No significant stenosis a long the common carotid arteries bilaterally. Mild peripheral noncalcified plaque in the proximal rig ht internal carotid artery. Mild peripheral calcified plaque distal left common carotid artery. Paten t external carotid arteries bilaterally without significant stenosis. No significant stenosis in the internal carotid arteries bilaterally. Dvoc-js-nhrduijd distal peripheral calcified plaque. Bilateral vertebral arteries are patent to basilar junction. Left vertebral artery is dominant. There is a patent left posterior communicating artery. There is hypoplastic right posterior communicating artery. There is no significant focal stenosis or aneurysm in the posterior circulation. Images of th e anterior circulation show patent anterior indicating artery image 32. There is no significant focal stenosis or aneurysm. Other: There is peripheral 3 to 4 mm calcified nodule or granuloma in the right upper lobe axial imag e 26. Mild to moderate multilevel spurring and disc space narrowing throughout the cervical spine is present. IMPRESSION: No significant abnormality is seen. NASCET criteria was used in interpretation of this exam?
[2023-04-08] MEDS: ATORVASTATIN 40 MG TAB PO SCH (20:21)
[2023-04-09] MEDS: PANTOPRAZOLE 40 MG TABLET PO SCH (06:11)
--- NOTE | 2023-04-09 08:17 | P.CNNES ---
History of Present Illness Consult date: 04/08/23 Requesting physician: Soham Raygoza Reason for Consult: CVA History of Present Illness: Patient is a 62-year-old right-handed female, otherwise very healthy, came to the hospital today at 9:44 AM referred from her primary physician office for evaluation of possible stroke. Patient states that her symptoms started last Thursday on 04/02/2023 when she was noted to have elevated blood pressure at her primary physician's office, who recommended her to go to the ER. Patient was seen in the ER, started on amlodipine 5 mg daily and discharged home. A couple hours later, patient returned back to the hospital by ambulance because of feeling dizziness, and her right leg was shaky, became weak and she fell. Patient underwent computed tomography scan of the head, which was normal. EKG showed normal sinus rhythm, chest x-ray showed no acute cardiac or process, CT of the lumbar spine showed some degenerative changes. Patient was released with impression of transient right leg weakness, lumbar radiculopathy knee pain and lightheadedness. Patient states that over the weekend her right leg would shake and feels as if it would give out. She has not had any further falls. She is noticing some slurred speech. Patient was seen by her primary physician today, who recommended to go to ER for further evaluation. Patient is noticing numbness of the right arm and leg since Thursday, slightly slow processing, little slurring of speech. She slightly stuttering also noticeable. When she is standing or walking, she feels dizzy. Vital signs on arrival blood pressure 152/75, pulse rate 61 temperature 97.9. Blood test shows normal CBC, PT/PTT, normal CMP, CK. CT head revealed new hypodense lesion within the medial aspect of the left frontal lobe from examination on 04/02/2023 which raises concern for subacute ischemia in the left anterior cerebral artery distribution. I personally reviewed CT head, agree with the findings. The previous CT head from 04/02/2023 was normal. Chest x- ray showed no acute cardiac or process. EKG shows sinus bradycardia. Patient's home medications include amlodipine 5 mg, meloxicam 7.5 mg. Patient denies any history of hypertension or diabetes. She does not take any m edication except for meloxicam as needed for arthritis of the knees. She has smoked half pack per day for 30 years, quit 10 years ago. Denies any alcohol use. Patient states her brother had an MRI and also has defibrillator pacemaker. No family history of strokes. Review of Systems Constitutional: Denies chills, Denies fever Eyes: denies blurred vision, denies diplopia, denies pain Ears: deny: decreased hearing, ear discharge Ears, nose, mouth and throat: Denies headache, Denies sore throat Cardiovascular: Denies chest pain, Denies shortness of breath Respiratory: Denies cough, Denies excessive sputum Gastrointestinal: Denies abdominal pain, Denies diarrhea, Denies nausea, Denies vomiting Musculoskeletal: Reports low back pain, Reports muscle weakness, Denies myalgias Integumentary: Denies pruritus, Denies rash Neurological: Reports as per HPI Psychiatric: Denies anxiety, Denies depression Endocrine: Denies fatigue, Denies weight change Past Medical History Past Medical History: No Reported History Additional Past Medical History / Comment(s): Arthritis in knees History of Any Multi-Drug Resistant Organisms: MRSA Date of last positivie culture/infection: 2015 MDRO Source:: Tailbone Past Surgical History: Cholecystectomy Past Anesthesia/Blood Transfusion Reactions: No Reported Reaction Past Psychological History: No Psychological Hx Reported Smoking Status: Former smoker Past Alcohol Use History: None Reported Past Drug Use History: None Reported - Past Family History Mother Family Medical History: Pneumonia Additional Family Medical History / Comment(s): at 83 of pneumonia with abnormal electrolytes Father Additional Family Medical History / Comment(s): at 77 from heart disease Medications and Allergies Home Medications Medication Instructions Recorded Confirmed Type amLODIPine [Norvasc] 5 mg PO DAILY #30 tab 04/02/23 04/08/23 Rx Meloxicam [Mobic] 15 mg PO HS 04/08/23 04/08/23 History Allergies Allergy/AdvReac Type Severity Reaction Status Date / Time No Known Allergies Allergy Verified 04/08/23 12:50 Physical Examination - Vital Signs Vital Signs: Vital Signs Temp Pulse Pulse Resp BP BP Pulse Ox 04/08/23 15:14 97.4 F L 67 16 188/77 96 04/08/23 15:00 59 L 16 167/86 99 04/08/23 09:53 97.9 F 61 18 152/75 95 Intake and Output 04/08/23 04/08/2323 06:59 14:59 22:59 Other: Weight 97.522 kg 97.522 kg Patient is a middle aged female, very pleasant, in no acute distress. Patient is alert, awake oriented to time place and person. Speech is fluent, although patient has slight slurring, and some stuttering noticed. Her language functions are normal. Patient can name and repeat very well. No aphasia, although there is very mild dysarthria. Attention, concentration and fund of knowledge is adequate. On cranial nerve examination, pupils are equal, round and reacting to light, visual abarca are full on confrontation, with no neglect on double simultaneous stimulation. Extraocular muscles are intact with no nystagmus. Face is symmetric, tongue protrudes to the midline. Palatal elevation and sensation normal, hearing and shoulder shrug normal, facial sensation normal. On muscle strength testing, there is no pronator drift and the strength is normal in arms and legs distally and proximally, except right hip flexion, which is 5- whereas it is normal on the left. Ankles, knees are normal bilaterally. Deep tendon reflexes are (right/left) biceps 1+/1+, brachioradialis 1/1, knees 2+3/2+3, ankle 3/2, plantar is upgoing on the right, down on the left. Sensory to touch is equal with no neglect on double simultaneous stimulation. Cerebellar function showed no ataxia for [id number]-[id number]-cdkc testing. No dysdiadochokinesia. No ataxia for [id number] testing on either side. Tone and bulk of muscles normal. Gait deferred.. On general examination, there is no carotid bruit or murmur, S1-S2 audible. Chest is clear on consultation. Abdomen is soft nontender. No organomegaly, bowel sounds present. Peripheral pulses are present. No edema. Results - Laboratory Findings CBC and BMP: 04/08/23 13:18 04/08/23 13:18 Abnormal Lab Findings: Abnormal Labs 04/08/23 04/08/23 13:18 13:18 Hct 46.1 H Glucose 102 H Assessment and Plan Assessment: * Subacute ischemic stroke involving the medial aspect of the left frontal lobe in the distribution of left JENNIFER. Rule out embolic source. Rule out carotid stenosis. * New onset hypertension * X tobacco use * Knee arthritis Plan: * Patient has been given aspirin 325 mg in the ER. We will start dual antiplatelet medication at least for 21 days. Patient to be started on Plavix 75 mg daily. * Agree with checking MRI of the brain * Stat CTA of head and neck was performed, which revealed no significant abnormality. * 2-D echo with bubble study, rule out PFO * Suggest 30 day event monitoring to rule out paroxysmal atrial fibrillation * Telemetry monitoring * Fasting lipid panel * Hemoglobin A1c * PT OT, evaluate gait. Speech therapy. * Permissive hypertension for 24 hours. Hold blood pressure medication if less than 130 systolic. * DVT prophylaxis * Neurology will follow. Thank you for the consult. Time with Patient: Greater than 30
[2023-04-09] MEDS ORDERED: LORazepam 2 MG/ML INJ IV STA (09:42)
[2023-04-09] MEDS: LOSARTAN 50 MG TAB PO SCH (09:43)
[2023-04-09] MEDS: amLODIPine 5 MG TAB PO SCH (09:43)
[2023-04-09] MEDS: CLOPIDOGREL 75 MG TAB PO SCH (09:43)
[2023-04-09] MEDS: ENOXAPARIN 40 MG/0.4 ML SYRINGE SQ SCH (09:44)
[2023-04-09 11:11] LABS: ALT 26 U/L (4-34); AST 27 U/L (14-36); African American GFR (CKD) >90 (>60 ml/min/1.73 sqM); Albumin 3.9 g/dL (3.5-5.0); Alkaline Phosphatase 84 U/L (38-126); Anion Gap 9 mmol/L; Blood Urea Nitrogen 16 mg/dL (7-17); Calcium 9.6 mg/dL (8.4-10.2); Carbon Dioxide 27 mmol/L (22-30); Chloride 105 mmol/L (98-107); Glucose 107 mg/dL (74-99); Non-African American GFR(CKD) >90 (>60 ml/min/1.73 sqM); Potassium 4.2 mmol/L (3.5-5.1); Sodium 141 mmol/L (137-145); Total Bilirubin 0.7 mg/dL (0.2-1.3); Total Protein 6.6 g/dL (6.3-8.2)
--- NOTE | 2023-04-09 11:39 | MR ---
EXAMINATION TYPE: MR brain wo/w con DATE OF EXAM: 04/09/2023 COMPARISON: CT brain from 1 day earlier HISTORY: uncontrolled hypertension, dizziness, weakness acute onset right-sided. Code stroke. TECHNIQUE: Multiplanar, multisequence images of the brain and brainstem is performed without and with IV contras t, utilizing 9ml mL intravenous Gadavist . FINDINGS: Diffusion weighted images demonstrate large global area of increased signal on diffusion-we ighted images with adjacent punctate foci through the left frontal lobe deep aspect of the midline story ving diminished signal on ADC mapping and having T1 hypointensity and T2 hyperintensity measuring 5.1 x 1.6 cm image 152 series 303. There is mild ventricular and sulcal prominence is demonstrated. Midline structures demonstrate normal morphology. The craniocervical junction appears within normal limits. Post contrast images demonstrate no abnormal enhancement. The dural venous sinuses appear pa tent. The visualized sinuses are clear and the globes are intact. IMPRESSION: Confirmation of evolving acute infarct involving the deep left frontal lobe near the midl ine as detailed above.
--- NOTE | 2023-04-09 12:00 | P.HPIM ---
History of Present Illness H&P Date: 04/09/23 HISTORY OF PRESENT ILLNESS This is a 62 year old female newly established in the office with past medical history of hyperlipidemia, hypertension, spondylosis of the lumbar spine, osteoarthritis of the knee. Patient presented to the office yesterday with concerns about a pinched nerve in his back for 5 days and high blood pressure readings. Patient recently presented to [facility] emergency center on 04/02 due to elevated blood pressure and was discharged home on amlodipine. Her blood pressure at the time of discharge was 143/68. She presented with a blood pressure 199/118. Patient then returned to the emergency center later that evening due to lightheadedness and had a fall at home with known chronic right lower extremity weakness secondary to a knee problem. Her blood pressure at the time was 164/76. She had a chest x-ray showed no acute cardiopulmonary process. Right knee and pelvics x-ray showed no acute process. CAT scan of the brain showed no intracranial process. Lumbar spine CAT scan showed degenerative changes at all levels. In the office, patient was diagnosed with a CVA and was sent to [facility] emergency center for further evaluation and treatment. Chest x-ray revealed no acute cardiopulmonary disease. CAT scan of the brain revealed new hypodense region within the medial aspect of the left frontal lobe from examination on 04/02/2023 which raises concern for subacute ischemia in the left anterior cerebral artery distribution. EKG sinus rhythm with no acute ST changes. CT angiogram of the head and neck revealed no significant abnormality. Laboratory studies: WBC 9.9, hemoglobin 15.6, platelet count 287. Sodium 140, potassium 4.4, chloride 103, CO2 27, BUN 17 creatinine 0.65. Blood sugar 102. Calcium 10. Total bilirubin and liver function test within normal limits. CK 38. Albumin 4.7. Patient was seen in the emergency center, admitted to the cardiac stepdown unit. Patient has been seen by neurology. REVIEW OF SYSTEMS Constitutional: No fever, no chills, no night sweats. No weight change. No weakness, fatigue or lethargy. No daytime sleepiness. EENT: No headache. No blurred vision or double vision, no loss of vision. No loss of Hearing, no ringing in the ears, no dizziness. No nasal drainage or congestion. No epistaxis. No sore throat. Lungs: No shortness of breath, cough, no sputum production. No wheezing. Cardiovascular: No chest pain, no lower extremity edema. No palpitations. No paroxysmal nocturnal dyspnea. No orthopnea. No lightheadedness or dizziness. No syncopal episodes. Abdominal: No abdominal pain. No nausea, vomiting. No diarrhea. No constipation. No bloody or tarry stools. No loss of appetite. Genitourinary: No dysuria, increased frequency, urgency. No urinary retention. Musculoskeletal: No myalgias. No muscle weakness, no gait dysfunction, no frequent falls. No back pain. No neck pain. Integumentary: No wounds, no lesions. No rash or pruritus. No unusual bruising. No change in hair or nails. Neurologic: No aphasia. No facial droop. No change in mentation. No head injury. No headache. No paralysis. No paresthesia. Psychiatric: No depression. No anxiety. No mood swings. Endocrine: No abnormal blood sugars. No weight change. No excessive sweating or thirst. No cold intolerance. MEDICAL HISTORY Spondylosis of the lumbar spine Hypertension Hyperlipidemia Osteoarthritis of the knee SURGICAL HISTORY Laparoscopic cholecystectomy 2012 SOCIAL HISTORY Patient was a smoker and quit in 2012. No alcohol use or abuse. FAMILY HISTORY Father at age 73 from coronary artery disease status post CABG 3 with hypertension and hyperlipidemia. Mother at age 83 from sepsis and had history of hypertension. Patient has a brother 77 years old with coronary artery disease, permanent pacemaker, AICD and PCI and CABG. PHYSICAL EXAMINATION Gen: This is a 62 year old female. She is resting in bed appears very comfortable and in no acute distress. HEENT: Head is atraumatic, normocephalic. Pupils equal, round. Sclerae is anic teric. NECK: Supple. No JVD. No lymphadenopathy. No thyromegaly. No carotid bruit LUNGS: Clear to auscultation. No wheezes or rhonchi. No intercostal retractions. HEART: Regular rate and rhythm. No murmur. ABDOMEN: Soft. Bowel sounds are present. No masses. No tenderness. EXTREMITIES: No pedal edema. No calf tenderness. NEUROLOGICAL: Patient is awake, alert and oriented x3. Slight slurring of speech Cranial nerves 2 through 12 are grossly intact. ASSESSMENT AND PLAN 1. Subacute ischemic stroke involving the medial aspect of the right frontal lobe and a revision of the left JENNIFER. Rule out embolic source. Rule out carotid stenosis. Patient has been seen by neurology with recommendations for full strength aspirin and Plavix to continue for 21 days, echocardiogram is pending, suggest 30 day event monitor to rule out paroxysmal atrial fibrillation. Recommend permissive hypertension for 24 hours. Continue telemetry monitoring. C reactive protein, Bashir, hemoglobin A1c, lipid panel vitamin B12 are all pending. Consult with PT, OT, ST. 2. Hypertension. Continue amlodipine 5 mg daily. 3. Hyperlipidemia. Continue atorvastatin 40 mg at bedtime. 4. Spondylosis of the lumbar spine, stable. 5. Osteoarthritis of the knees stable. 6. GI prophylaxis. Protonix 40 mg daily. 7. DVT prophylaxis. Lovenox 40 mg subcu daily. Patient will be admitted to the hospital for a minimum of 2 night stay. DISCHARGE PLAN To be determined. Impression and plan of care have been directed as dictated by the signing physician. Alondra Marley nurse practitioner acting as scribe for signing physician. Past Medical History Past Medical History: No Reported History Additional Past Medical History / Comment(s): Arthritis in knees History of Any Multi-Drug Resistant Organisms: MRSA Date of last positivie culture/infection: 2015 MDRO Source:: Tailbone Past Surgical History: Cholecystectomy Past Anesthesia/Blood Transfusion Reactions: No Reported Reaction Past Psychological History: No Psychological Hx Reported Smoking Status: Former smoker Past Alcohol Use History: None Reported Past Drug Use History: None Reported - Past Family History Mother Family Medical History: Pneumonia Additional Family Medical History / Comment(s): at 83 of pneumonia with abnormal electrolytes Father Additional Family Medical History / Comment(s): at 77 from heart disease Medications and Allergies Home Medications Medication Instructions Recorded Confirmed Type amLODIPine [Norvasc] 5 mg PO DAILY #30 tab 04/02/23 04/08/23 Rx Meloxicam [Mobic] 15 mg PO HS 04/08/23 04/08/23 History Allergies Allergy/AdvReac Type Severity Reaction Status Date / Time No Known Allergies Allergy Verified 04/08/23 12:50 Physical Exam Vitals: Vital Signs Temp Pulse Pulse Resp BP BP Pulse Ox 04/09/23 08:00 98.2 F 64 16 129/72 96 04/09/23 03:42 97.9 F 59 L 14 147/76 96 04/08/23 23:54 98 F 55 L 16 131/71 95 04/08/23 20:00 98.4 F 61 16 137/75 96 04/08/23 16:48 165/85 04/08/23 16:30 67 04/08/23 15:14 97.4 F L 67 16 188/77 96 04/08/23 15:00 59 L 16 167/86 99 Intake and Output 04/08/23 04/09/23 04/09/23 22:59 06:59 14:59 Intake Total 118 118 Balance 118 118 Intake: Oral 118 118 Other: Voiding Method Toilet Toilet # Voids 1 2 Weight 97.522 kg Results CBC & Chem 7: 04/08/23 13:18 04/09/23 09:57 Labs: Abnormal Lab Results - Last 24 Hours (Table) 04/08/23 04/08/23 Range/Units 13:18 13:18 Hct 46.1 H (34.0-46.0) % Glucose 102 H (74-99) mg/dL Thrombosis Risk Factor Assmnt - Choose All That Apply Any of the Below Risk Factors Present?: Yes Each Factor Represents 1 point: Age 41-60 years, Obesity (BMI >25) Other Risk Factors: No Other congenital or acquired thrombophilia - If yes, enter type in comment: Yes Each Risk Factor Represents 5 Points: Stroke (< 1 month) Thrombosis Risk Factor Assessment Total Risk Factor Score: 7 Thrombosis Risk Factor Assessment Level: High Risk
[2023-04-09 12:15] LABS: Basophils % (A) 0 %; Eosinophils # (A) 0.2 k/uL (0-0.7); Eosinophils % (A) 2 %; HCT 43.6 % (34.0-46.0); HGB 14.8 gm/dL (11.4-16.0); Lymphocytes # (A) 1.8 k/uL (1.0-4.8); Lymphocytes % (A) 24 %; MCH 32.8 pg (25.0-35.0); MCV 96.6 fL (80.0-100.0); Mean Platelet Volume 8.3; Monocytes # (A) 0.5 k/uL (0-1.0); Monocytes % (A) 7 %; Neutrophils # (A) 4.7 k/uL (1.3-7.7); Neutrophils % (A) 63 %; Platelet Count 270 k/uL (150-450); RBC 4.52 m/uL (3.80-5.40); RDW 12.9 % (11.5-15.5); WBC 7.4 k/uL (3.8-10.6)
--- NOTE | 2023-04-09 12:52 | CA ---
Transthoracic Echo Report Name: Genny Azul Age: 62 Gender: F : 1960 Exam Date: 04/09/2023 07:53 Exam Location: [facility] Ht (in): 63 Wt (lb): 215 Ordering Physician: Aubrey Smith MD Attending/Referring Phys: Proposal Specialist Gurinder Mtz Procedure CPT: Indications: CVA Cardiac Hx: CVA, HTN Technical Quality: Fair Contrast 1: Total Dose (mL): Contrast 2: Total Dose (mL): MEASUREMENTS (Male / Female) Normal Values 2D ECHO LV Diastolic Diameter PLAX 4.3 cm 4.2 - 5.9 / 3.9 - 5.3 cm IVS Diastolic Thickness 1.5 cm 0.6 - 1.0 / 0.6 - 0.9 cm LVPW Diastolic Thickness 1.1 cm 0.6 - 1.0 / 0.6 - 0.9 cm LV Relative Wall Thickness 0.6 RV Internal Dim ED PLAX 1.9 cm LVOT Diameter 2.0 cm Aortic Root Diameter 2.8 cm LA Systolic Diameter LX 3.2 cm 3.0 - 4.0 / 2.7 - 3.8 cm LV Diastolic Volume MOD BP 52.0 cm??? 67 - 155 / 56 - 104 cm??? LV Systolic Volume MOD BP 14.5 cm??? 22 - 58 / 19 - 49 cm??? LV Ejection Fraction MOD BP 72.1 % >= 55 % LV Diastolic Volume MOD 4C 55.6 cm??? LV Systolic Volume MOD 4C 15.9 cm??? LV Ejection Fraction MOD 4C 71.5 % LV Diastolic Length 4C 6.5 cm LV Systolic Length 4C 5.8 cm LV Diastolic Volume MOD 2C 45.2 cm??? LV Systolic Volume MOD 2C 12.0 cm??? LV Ejection Fraction MOD 2C 73.4 % LV Diastolic Length 2C 6.0 cm LV Systolic Length 2C 5.2 cm Ascending Aorta Diameter 2.6 cm DOPPLER AV Peak Velocity 171.5 cm/s AV Peak Gradient 11.8 mmHg Mitral E Point Velocity 80.4 cm/s Mitral A Point Velocity 86.7 cm/s Mitral E to A Ratio 0.9 MV Deceleration Time 284.5 ms MV E' Velocity 8.0 cm/s Mitral E to MV E' Ratio 10.0 TR Peak Velocity 115.4 cm/s TR Peak Gradient 5.3 mmHg PV Peak Velocity 114.6 cm/s PV Peak Gradient 5.3 mmHg FINDINGS Left Ventricle Left ventricular ejection fraction is estimated at 60 %. Normal Left ventricular size, wall thickness, systolic function with no obvious regional wall motion abnormalities. Normal Left ventricular diastolic filling pattern. Right Ventricle Normal right ventricular size and function. Right Atrium Normal right atrial size. Left Atrium Negative Bubble sudy.normal left atrial size. Mitral Valve Structurally normal mitral valve. No mitral regurgitation. Aortic Valve Trileaflet aortic valve. No aortic regurgitation. No aortic stenosis. Tricuspid Valve Tricuspid valve not well visualized. Trace tricuspid regurgitation. Pulmonic Valve Pulmonic valve not well visualized. Mild pulmonic regurgitation. Pericardium Normal pericardium. Aorta Normal size aortic root and proximal ascending aorta. CONCLUSIONS Normal LV size and systolic function. Minimal mitral and tricuspid regurgitation no pulmonary hypertension no pericardial effusion Previewed by: Dr. Maureen Jeronimo MD (Electronically Signed) Final Date: 09 Apr 2023 12:51
[2023-04-09 15:43] LABS: Chol/HDL Ratio 3.92 Ratio
[2023-04-09] MEDS: SODIUM CHLORIDE 0.9% 1,000 ML IV SCH (16:57)
[2023-04-09 19:48] VITALS: RESP 18
[2023-04-09] MEDS: ATORVASTATIN 40 MG TAB PO SCH (20:01)
[2023-04-10] MEDS: PANTOPRAZOLE 40 MG TABLET PO SCH (05:44)
[2023-04-10 07:58] VITALS: TEMP 97.8
[2023-04-10] MEDS: amLODIPine 5 MG TAB PO SCH (07:59)
[2023-04-10] MEDS: ENOXAPARIN 40 MG/0.4 ML SYRINGE SQ SCH (07:59)
[2023-04-10] MEDS: CLOPIDOGREL 75 MG TAB PO SCH (07:59)
[2023-04-10] MEDS: LOSARTAN 50 MG TAB PO SCH (07:59)
--- NOTE | 2023-04-10 08:33 | P.PN ---
Subjective Progress Note Date: 04/09/23 Patient was seen for a follow-up. Patient is sitting comfortably in the recliner. Denies any new symptoms. Continues to have some slurred speech, but denies any word finding problem or difficulty speaking otherwise. Patient states that she just returned from MRI and received Ativan, therefore feels gr oggy. Objective - Vital Signs Vital signs: Vital Signs Temp 97.8 F 04/10/23 07:54 Pulse 72 04/10/23 08:00 Resp 18 04/10/23 07:54 BP 162/75 04/10/23 07:54 Pulse Ox 95 04/10/23 07:54 FiO2 Intake & Output 04/09/23 04/10/23 04/10/23 18:59 06:59 18:59 Intake Total 476 540 Balance 476 540 Intake: Oral 476 540 Other: Voiding Method Toilet # Voids 2 - Exam Patient's mental status is normal. She does have a flat affect. Her speech is slightly dysarthric, at times has some hesitancy, but she is fluent, and able to express herself well. Cranial nerves are all normal. Visual abarca are full, face is symmetric and tongue protrudes the midline. Muscle strength testing, patient has mild right pronation, no drift. The strength however is completely normal in the arms and legs. Sensory touch is equal with no neglect. No ataxia for [id number] or [id number] testing. Tone and bulk of muscles normal. - Labs CBC & Chem 7: 04/09/23 09:57 04/09/23 09:57 Labs: Abnormal Lab Results - Last 24 Hours (Table) 04/09/23 Range/Units 09:57 Glucose 107 H (74-99) mg/dL Assessment and Plan Assessment: * Subacute ischemic stroke involving the medial aspect of the left frontal lobe in the distribution of left JENNIFER. Patient has mild right leg weakness, slurred speech and some apathy, probably related to frontal lobe dysfunction although may be related to receiving Ativan for MRI. Etiology of stroke remains uncertain. Patient does not have significant vascular risk factors. No abnormality noted on the CTA or other risk factors, except for persistently elevated blood pressure. * New onset hypertension * X tobacco use * Knee arthritis Plan: * Patient has been given aspirin 325 mg in the ER. We will start dual antiplatelet medication at least for 21 days. Patient to be started on Plavix 75 mg daily. Patient was not taking any antiplatelet medication at home prior to arrival. * MRI of the brain revealed confirmation of evolving acute infarct involving the deep left frontal lobe near the midline. I personally reviewed MRI, agree with the findings. No hemorrhage. * CTA of head and neck revealed no significant abnormality. No stenosis, aneurysm or occlusion. * 2-D echo with bubble study revealed normal left ventricular size and systolic function with EF 60%. Minimal mitral and tricuspid regurgitation. Left atrial size is normal. Negative bubble study. Consider BUTCH rule out embolic source. * Suggest 30 day event monitoring to rule out paroxysmal atrial fibrillation * Continue Telemetry monitoring. So far showing no arrhythmia. * Fasting lipid panel cholesterol 163, LDL 95, HDL 41 and triglycerides 132. Continue Lipitor 40 mg daily. * Hemoglobin A1c 5.7 * PT OT, evaluate gait. Speech therapy. * Optimize control of blood pressure. * DVT prophylaxis: Patient on Lovenox 40 mg subcu daily
[2023-04-10] MEDS ORDERED: ASPIRIN 81 MG PO SCH (09:00)
--- NOTE | 2023-04-10 12:07 | P.PN ---
Subjective Progress Note Date: 04/10/23 HISTORY OF PRESENT ILLNESS This is a 62 year old female newly established in the office with past medical history of hyperlipidemia, hypertension, spondylosis of the lumbar spine, osteoarthritis of the knee. Patient presented to the office yesterday with concerns about a pinched nerve in his back for 5 days and high blood pressure readings. Patient recently presented to [facility] emergency center on 04/02 due to elevated blood pressure and was discharged home on amlodipine. Her blood pressure at the time of discharge was 143/68. She presented with a blood pressure 199/118. Patient then returned to the emergency center later that evening due to lightheadedness and had a fall at home with known chronic right lower extremity weakness secondary to a knee problem. Her blood pressure at the time was 164/76. She had a chest x-ray showed no acute cardiopulmonary process. Right knee and pelvics x-ray showed no acute process. CAT scan of the brain showed no intracranial process. Lumbar spine CAT scan showed degenerative changes at all levels. In the office, patient was diagnosed with a CVA and was sent to [facility] emergency center for further evaluation and treatment. Chest x-ray revealed no acute cardiopulmonary disease. CAT scan of the brain revealed new hypodense region within the medial aspect of the left frontal lobe from examination on 04/02/2023 which raises concern for subacute ischemia in the left anterior cerebral artery distribution. EKG sinus rhythm with no acute ST changes. CT angiogram of the head and neck revealed no significant abnormality. Laboratory studies: WBC 9.9, hemoglobin 15.6, platelet count 287. Sodium 140, potassium 4.4, chloride 103, CO2 27, BUN 17 creatinine 0.65. Blood sugar 102. Calcium 10. Total bilirubin and liver function test within normal limits. CK 38. Albumin 4.7. Patient was seen in the emergency center, admitted to the cardiac stepdown unit. Patient has been seen by neurology. 04/10: Patient is seen today in follow-up. She has been seen by neurology. Patient continues to have some slurred speech but otherwise improving. Patient has been seen by therapies and recommendations are for home. VNA has been arranged by senior case manager. Patient has been afebrile, heart rate in the 60s and 70s, blood pressure 162/75, pulse ox 95% on room air. MRI of the brain confirmation of evolving acute infarct involving the deep left frontal lobe near the midline. Echocardiogram reveals normal LV size and systolic function. Minimal mitral and tricuspid regurgitation, no pulmonary hypertension, no pericardial effusion. REVIEW OF SYSTEMS Constitutional: No fever, no chills, no night sweats. No weight change. No weakness, fatigue or lethargy. No daytime sleepiness. EENT: No headache. No blurred vision or double vision, no loss of vision. No loss of Hearing, no ringing in the ears, no dizziness. No nasal drainage or congestion. No epistaxis. No sore throat. Lungs: No shortness of breath, cough, no sputum production. No wheezing. Cardiovascular: No chest pain, no lower extremity edema. No palpitations. No paroxysmal nocturnal dyspnea. No orthopnea. No lightheadedness or dizziness. No syncopal episodes. Abdominal: No abdominal pain. No nausea, vomiting. No diarrhea. No co nstipation. No bloody or tarry stools. No loss of appetite. Genitourinary: No dysuria, increased frequency, urgency. No urinary retention. Musculoskeletal: No myalgias. No muscle weakness, no gait dysfunction, no frequent falls. No back pain. No neck pain. Integumentary: No wounds, no lesions. No rash or pruritus. No unusual bruising. No change in hair or nails. Neurologic: No aphasia. No facial droop. No change in mentation. No head injury. No headache. No paralysis. No paresthesia. Psychiatric: No depression. No anxiety. No mood swings. Endocrine: No abnormal blood sugars. No weight change. No excessive sweating or thirst. No cold intolerance. PHYSICAL EXAMINATION Gen: This is a 62 year old female. She is resting in bed appears very comfortable and in no acute distress. HEENT: Head is atraumatic, normocephalic. Pupils equal, round. Sclerae is anicteric. NECK: Supple. No JVD. No lymphadenopathy. No thyromegaly. No carotid bruit LUNGS: Clear to auscultation. No wheezes or rhonchi. No intercostal retractions. HEART: Regular rate and rhythm. No murmur. ABDOMEN: Soft. Bowel sounds are present. No masses. No tenderness. EXTREMITIES: No pedal edema. No calf tenderness. NEUROLOGICAL: Patient is awake, alert and oriented x3. Slight slurring of speech Cranial nerves 2 through 12 are grossly intact. ASSESSMENT AND PLAN 1. Acute or Subacute ischemic stroke involving the medial aspect of the right frontal lobe and a revision of the left JENNIFER. Rule out embolic source. Rule out carotid stenosis. Patient has been seen by neurology with recommendations for full strength aspirin and Plavix to continue for 21 days, echocardiogram is pending, suggest 30 day event monitor to rule out paroxysmal atrial fibrillation. Recommend permissive hypertension for 24 hours. Continue telemetry monitoring. C reactive protein, Bashir, hemoglobin A1c, lipid panel vitamin B12 are all pending. Consult with PT, OT, ST. 2. Hypertension. Continue amlodipine 5 mg daily. 3. Hyperlipidemia. Continue atorvastatin 40 mg at bedtime. 4. Spondylosis of the lumbar spine, stable. 5. Osteoarthritis of the knees stable. 6. GI prophylaxis. Protonix 40 mg daily. 7. DVT prophylaxis. Lovenox 40 mg subcu daily. Patient will be admitted to the hospital for a minimum of 2 night stay. DISCHARGE PLAN Home with VNA Impression and plan of care have been directed as dictated by the signing physician. Alondra Marley nurse practitioner acting as scribe for signing physician. Objective - Vital Signs Vital signs: Vital Signs Temp 97.8 F 04/10/23 07:54 Pulse 72 04/10/23 08:00 Resp 18 04/10/23 07:54 BP 162/75 04/10/23 07:54 Pulse Ox 95 04/10/23 07:54 FiO2 Intake & Output 04/09/23 04/10/23 04/10/23 18:59 06:59 18:59 Intake Total 476 540 Balance 476 540 Intake: Oral 476 540 Other: Voiding Method Toilet # Voids 2 - Labs CBC & Chem 7: 04/09/23 09:57 04/09/23 09:57
[2023-04-10] MEDS ORDERED: SODIUM CHLORIDE 0.9% 500 ML 500 ML IV ONE (12:29)
[2023-04-10] MEDS: BENZOCAINE SPRAY 1 CAN MUCOUS MEM ONE ×2 (12:36→12:54)
[2023-04-10] MEDS ORDERED: fentaNYL (PF) 50 MCG/ML 2 ML AMP IV ONE (12:56)
[2023-04-10] MEDS ORDERED: MIDAZOLAM 2 MG/2 ML VIAL IV ONE (12:56)
[2023-04-10 13:04] VITALS: BP 155/67; PULSE 62
--- NOTE | 2023-04-10 13:36 | CONS ---
CONSULTATION CHIEF COMPLAINT: CVA. HISTORY OF PRESENT ILLNESS: This is a 62-year-old lady with history of hypertension, dyslipidemia, osteoarthritis who presented to hospital with elevated blood pressures and was treated with amlodipine, subsequently came back in with right lower extremity weakness and she has been diagnosed with a CVA involving right frontal lobe. I have been asked to perform a transesophageal echo to rule out cardiac source of thromboembolic phenomenon. An echocardiogram shows normal LV function. PAST MEDICAL HISTORY: Significant for hypertension. CURRENT MEDICATIONS: 1. Norvasc. 2. Mobic. ALLERGIES: No known drug allergies. FAMILY HISTORY: Negative for premature coronary artery disease. SOCIAL HISTORY: Negative for smoking, EtOH abuse, or drug abuse. REVIEW OF SYSTEMS: HEENT: Unremarkable. CARDIAC: As described above. RESPIRATORY: As described above. GI: Negative. GENITOURINARY: Negative. ALLERGY/IMMUNOLOGY: Negative. SKIN: Negative. MUSCULOSKELETAL: Negative. ENDOCRINE: Negative. DERM: Negative. CONSTITUTIONAL: Negative. ONCOLOGICAL: Negative. REHAB MANAGER: Negative. Rest of the system review is not relevant. PHYSICAL EXAMINATION: GENERAL: Comfortable at rest. VITAL SIGNS: Blood pressure is poorly controlled. NECK: There is no jugular venous distention. Carotid upstroke is normal. There is no bruit. CHEST: Reveals good air entry bilaterally. HEART: Reveals first and second heart sounds. No gallop, no murmur, no rub. ABDOMEN: Soft, nontender. EXTREMITIES: Did not reveal edema, peripheral pulses are felt. ASSESSMENT: CVA, rule out cardiac source of thromboembolic phenomenon. PLAN: I advised her to undergo a BUTCH. MMODL / IJN: [id number] /
--- NOTE | 2023-04-10 14:16 | P.DS ---
Providers Date of admission: 04/08/23 14:55 Expected date of discharge: 04/10/23 Attending physician: Aubrey Smith Consults: 04/08/23 14:54 Consult Physician Routine Consulting Provider: Stephania Matos Consult Reason/Comments: cva Do you want consulting provider notified?: Yes 04/10/23 06:56 Consult Physician Routine Consulting Provider: Aren Khanna Consult Reason/Comments: BUTCH secondary to CVA Do you want consulting provider notified?: Yes, Notify in am [facility] Course: HISTORY OF PRESENT ILLNESS This is a 62 year old female newly established in the office with past medical history of hyperlipidemia, hypertension, spondylosis of the lumbar spine, osteoarthritis of the knee. Patient presented to the office yesterday with concerns about a pinched nerve in his back for 5 days and high blood pressure readings. Patient recently presented to [facility] emergency center on 04/02 due to elevated blood pressure and was discharged home on amlodipine. Her blood pressure at the time of discharge was 143/68. She presented with a blood pressure 199/118. Patient then returned to the emergency center later that evening due to lightheadedness and had a fall at home with known chronic right lower extremity weakness secondary to a knee problem. Her blood pressure at the time was 164/76. She had a chest x-ray showed no acute cardiopulmonary process. Right knee and pelvics x-ray showed no acute process. CAT scan of the brain showed no intracranial process. Lumbar spine CAT scan showed degenerative changes at all levels. In the office, patient was diagnosed with a CVA and was sent to [facility] emergency center for further evaluation and treatment. Chest x-ray revealed no acute cardiopulmonary disease. CAT scan of the brain revealed new hypodense region within the medial aspect of the left frontal lobe from examination on 04/02/2023 which raises concern for subacute ischemia in the left anterior cerebral artery distribution. EKG sinus rhythm with no acute ST changes. CT angiogram of the head and neck revealed no significant abnormality. Laboratory studies: WBC 9.9, hemoglobin 15.6, platelet count 287. Sodium 140, potassium 4.4, chloride 103, CO2 27, BUN 17 creatinine 0.65. Blood sugar 102. Calcium 10. Total bilirubin and liver function test within normal limits. CK 38. Albumin 4.7. Patient was seen in the emergency center, admitted to the cardiac stepdown unit. Patient has been seen by neurology. 04/10: Patient is seen today in follow-up. She has been seen by neurology. Patient continues to have some slurred speech but otherwise improving. Patient has been seen by therapies and recommendations are for home. VNA has been arranged by caseworker. Patient has been afebrile, heart rate in the 60s and 70s, blood pressure 162/75, pulse ox 95% on room air. Patient underwent BUTCH which was normal and she was cleared from cardiology for discharge home. Patient will be discharged home today in stable condition. MRI of the brain confirmation of evolving acute infarct involving the deep left frontal lobe near the midline. Echocardiogram reveals normal LV size and systolic function. Minimal mitral and tricuspid regurgitation, no pulmonary hypertension, no pericardial effusion. DISCHARGE DIAGNOSES: 1. Acute or Subacute ischemic stroke involving the medial aspect of the right frontal lobe and a revision of the left JENNIFER. Ruled out embolic source. 2. Hypertension. 3. Hyperlipidemia. 4. Spondylosis of the lumbar spine, stable. 5. Osteoarthritis of the knees stable. DISCHARGE PLAN Home with VNA Greater than 35 minutes was utilized and coordinating patient's discharge. Impression and plan of care have been directed as dictated by the signing p avery. Alondra Marley nurse practitioner acting as scribe for signing physician. Patient Condition at Discharge: Stable Plan - Discharge Summary Discharge Rx Participant: No New Discharge Prescriptions: New Losartan [Cozaar] 50 mg PO DAILY #30 tab Atorvastatin [Lipitor] 40 mg PO HS #30 tab Aspirin 81 mg PO DAILY #21 tab Clopidogrel [Plavix] 75 mg PO DAILY #30 tab Continue amLODIPine [Norvasc] 5 mg PO DAILY #30 tab Discontinued Meloxicam [Mobic] 15 mg PO HS Discharge Medication List amLODIPine [Norvasc] 5 mg PO DAILY #30 tab 04/02/23 [Rx] Aspirin 81 mg PO DAILY #21 tab 04/10/23 [Rx] Atorvastatin [Lipitor] 40 mg PO HS #30 tab 04/10/23 [Rx] Clopidogrel [Plavix] 75 mg PO DAILY #30 tab 04/10/23 [Rx] Losartan [Cozaar] 50 mg PO DAILY #30 tab 04/10/23 [Rx] Follow up Appointment(s)/Referral(s): Aubrey Smith MD [Primary Care Provider] - 1 Week VNA Visiting Nurse, [NON-STAFF] - Discharge Disposition: HOME WITH HOME HEALTH SERVICES
--- NOTE | 2023-04-10 15:21 | ECHOT ---
TRANSESOPHAGEAL ECHOCARDIOGRAM INDICATION: CVA, rule out cardiac source of thromboembolic phenomenon. PROCEDURE NOTE: After obtaining informed consent, transesophageal echocardiogram was performed in left lateral position using an Omni plane probe. Local and IV sedation were obtained using Xylocaine spray, Versed and fentanyl. The patient tolerated the procedure well without any obvious immediate complications. The patient received moderate conscious sedation. Total sedation time was 5 minutes. FINDINGS: 1. There is no intracardiac thrombus within the left atrial appendage, left atrium, right atrium, right ventricle or left ventricle. 2. Left ventricle has normal size and systolic function. 3. Left atrium, right atrium, right ventricle are within normal limits. 4. Mitral valve is anatomically normal. There is mild mitral regurgitation noted. 5. Tricuspid valve appears normal. There is mild tricuspid regurgitation. Aortic valve is a 3-leaflet valve. There is no evidence of aortic stenosis or regurgitation. Aortic root measures normally. There are mild atherosclerotic changes within the aorta. CONCLUSIONS: No intracardiac thrombus. No shunting. Normal LV function. No cardiac source of thromboembolic phenomenon noted on this study. MMODL / IJN: [id number] /
[2023-04-10 16:22] LABS: Glucose,Whole Blood 132 mg/dL (70-110)
--- NOTE | 2023-04-11 11:04 | P.PN ---
Subjective Progress Note Date: 04/10/23 Patient was seen for a follow-up. Patient is sitting comfortably in the recliner. Denies any new symptoms. Continues to have some slurred speech, but denies any word finding problem or difficulty speaking otherwise. Her gait is improving, her right leg is getting stronger. Telemetry monitoring showing sinus rhythm in the 60s. No other arrhythmia noted. Objective - Vital Signs Vital signs: Vital Signs Temp 97.8 F 04/10/23 07:54 Pulse 62 04/10/23 13:03 Resp 18 04/10/23 07:54 BP 155/67 04/10/23 13:03 Pulse Ox 96 04/10/23 13:03 FiO2 Intake & Output 04/09/23 04/10/23 04/10/23 18:59 06:59 18:59 Intake Total 476 540 200 Balance 476 540 200 Intake: IV 200 Oral 476 540 Other: Voiding Method Toilet # Voids 2 - Exam Patient's mental status is normal. Her speech is slightly dysarthric, at times has some hesitancy, but she is fluent, and able to express herself well. Cranial nerves are all normal. Visual abarca are full, face is symmetric and tongue protrudes the midline. Muscle strength testing, patient has mild right pronation, no drift. The strength however is completely normal in the arms and legs distally and proximally. Sensory touch is equal with no neglect on double simultaneous stimulation. No ataxia for [id number] or [id number] testing. Tone and bulk of muscles normal. Patient able to walk, but slightly wide base. - Labs CBC & Chem 7: 04/09/23 09:57 04/09/23 09:57 Assessment and Plan Assessment: * Subacute ischemic stroke involving the medial aspect of the left frontal lobe in the distribution of left JENNIFER. Patient has mild right leg weakness, slurred speech. Etiology of stroke remains uncertain. Patient does not have significant vascular risk factors except for persistently elevated blood pr essure. No abnormality noted on the CTA or cardiac workup. * New onset hypertension * X tobacco use * Knee arthritis Plan: * Patient has been given aspirin 325 mg in the ER. We will start dual antiplatelet medication at least for 21 days. Patient to be started on Plavix 75 mg daily. Patient was not taking any antiplatelet medication at home prior to arrival. * MRI of the brain revealed confirmation of evolving acute infarct involving the deep left frontal lobe near the midline. I personally reviewed MRI, agree with the findings. No hemorrhage. * CTA of head and neck revealed no significant abnormality. No stenosis, aneurysm or occlusion. * 2-D echo with bubble study revealed normal left ventricular size and systolic function with EF 60%. Minimal mitral and tricuspid regurgitation. Left atrial size is normal. Negative bubble study. * BUTCH performed today showed no intracardiac thrombus. No shunting. Normal left ventricular function. No cardiac source of thromboembolic phenomenon noted. * Patient will undergo 30 day event monitoring to rule out paroxysmal atrial fibrillation * Continue Telemetry monitoring. So far showing sinus rhythm in the 60s, with no arrhythmia. * All workup has been negative. May consider hypercoagulable workup as an outpa tient. * Fasting lipid panel cholesterol 163, LDL 95, HDL 41 and triglycerides 132. Continue Lipitor 40 mg daily. * Hemoglobin A1c 5.7 * PT OT, evaluate gait. Speech therapy. * Optimize control of blood pressure to target blood pressure < 130/80. * Neurologically clear for discharge. * Recommend follow-up with neurologist as an outpatient in 1 to 2 weeks. This will be arranged by patient's primary physician on the next clinic visit.
== END 2023-04-10 16:23 | disposition home health service (06) | DRG 66 ==
LOC: EC 09:44 → 3SCARD 14:55
PROVIDERS: ADMIT Internal Medicine; ATTEND Internal Medicine
PROC: B24BZZ4 Ultrasonography of Heart with Aorta, Transesophageal (ICD-10-PCS; principal; 2023-04-10 17:00)
DX: I63.522 Cerebral infarction due to unspecified occlusion or stenosis of left anterior cerebral artery (principal); I10 Essential (primary) hypertension; I08.1 Rheumatic disorders of both mitral and tricuspid valves; E78.5 Hyperlipidemia, unspecified; M47.26 Other spondylosis with radiculopathy, lumbar region; M17.0 Bilateral primary osteoarthritis of knee; R00.1 Bradycardia, unspecified; R47.1 Dysarthria and anarthria; G58.9 Mononeuropathy, unspecified; R53.1 Weakness; R29.700 NIHSS score 0; W19.XXXA Unspecified fall, initial encounter; Y92.009 Unspecified place in unspecified non-institutional (private) residence as the place of occurrence of the external cause; Z79.899 Other long term (current) drug therapy; Z87.891 Personal history of nicotine dependence; Z82.49 Family history of ischemic heart disease and other diseases of the circulatory system
CPT/HCPCS: 36415; 70450; 70496; 70498; 70553; 71046; 80053; 80061; 82550; 82607; 82746; 83036; 85025; 85610; 85730; 86141; 93005; 93270; 93306; 93312; 93320; 93325; 99285

== ENCOUNTER → 2023-06-08 | Outpatient (CLI) | payer BC ==
[2023-06-08 08:00] LABS: INR 0.9 (<1.2); Partial Thromboplastin Time 22.7 sec (22.0-30.0); Prothrombin Time 9.9 sec (9.0-12.0)
[2023-06-08 17:21] LABS: Cardiolipin Ab IgG Interp Positive (Negative); Cardiolipin Ab IgM Interp Negative (Negative); Cardiolipin IgA Antibody <2.0 U/mL; Cardiolipin IgM Antibody 2.6 U/mL
[2023-06-09 13:38] LABS: APTT 39 Sec(s) (<43); Dilute Russell Viper Venom 43 Sec(s) (<44)
== END | disposition home or self-care (01) ==
LOC: LABWHC1 07:11
PROVIDERS: ATTEND Psychiatry & Neurology Neurology
DX: I67.9 Cerebrovascular disease, unspecified (principal)
CPT/HCPCS: 36415; 83036; 83090; 85610; 85613; 85730; 86147

== ENCOUNTER → 2025-01-20 | Outpatient (CLI) | payer BC ==
--- NOTE | 2025-01-20 08:37 | MM ---
Reason for Exam: Screening (asymptomatic). Baseline mammogram. Patient History: Menarche at age 13. Patient has no children. Postmenopausal. Risk Values: Elizabeth 5 year model risk: 1.9%. NCI Lifetime model risk: 8.4%. Prior Study Comparison: Patient's first Mammogram. No prior studies available for comparison. Tissue Density: The breasts are heterogeneously dense, which may obscure small masses. Findings: Analyzed By CAD. Right breast: There is no suspicious group of microcalcifications or new suspicious mass. Left breast: There is no suspicious group of microcalcifications or new suspicious mass. Overall Assessment: Negative, BI-RAD 1 Management: Screening Mammogram of both breasts in [address] [facility] will attempt to contact patient to return for supplemental views and ultrasound if indicated. Patient should continue monthly self-breast exams. A clinical breast exam by your physician is recommended on an annual basis. This exam should not preclude additional follow-up of suspicious palpable abnormalities. Note on Elizabeth scores and lifetime risk: 1. A Elizabeth score greater than 3% is considered moderate risk. If this is the case, consider specialist referral to assess eligibility for a risk reducing agent. 2. If overall lifetime risk for the development of breast cancer is 20% or higher, the patient may qualify for future screening with alternating mammogram and breast MRI. [facility], , 01/20/2025 8:34 AM. Electronically signed and approved by: Lance Cervantes DO
--- NOTE | 2025-01-20 09:53 | BD ---
EXAMINATION TYPE: Axial Bone Density DATE OF EXAM: 01/20/2025 CLINICAL HISTORY: 64 years old Female. ICD-10 CODE: M85.851 OT DISRD OF BONE DENSITY , Additional History: Height: 60.7 in Weight: 241 lbs EXAM MEASUREMENTS: Bone mineral densitometry was performed using the [employer] System. Bone mineral density as measured about the Lumbar spine is: ----- L1-L4(G/cm2): 1.215 T Score Values are as follows: ----- L1: -1.2 ----- L2: -0.4 ----- L3: 1.1 ----- L4: 1.5 ----- L1-L4: 0.3 Z Score Values are as follows: ----- L1: -1.0 ----- L2: -0.2 ----- L3: 1.3 ----- L4: 1.7 ----- L1-L4: 0.5 Bone mineral density baseline Bone mineral density about the R hip (g/cm2): 1.093 Bone mineral density about the L hip (g/cm2): 1.063 T Score values are as follows: -----R Neck: -0.6 -----L Neck: -1.0 -----R Total: 0.7 -----L Total: 0.4 Z Score values are as follows: -----R Neck: 0.0 -----L Neck: -0.4 -----R Total: 0.9 -----L Total: 0.6 Bone mineral density baseline FRAX%s: The graph provided illustrates a 6.4% chance for a major osteoporotic fx and a 0.3% chance fo r the hips probability for fx in 10 years time. IMPRESSION: Osteopenia (T Score between -2.5 and -1). There is slightly increased risk of fracture and the patient may be considered for treatment. Re-Screen 2-5 years. NOTE: T-SCORE=SD OF THE YOUNG ADULT MEAN. [facility], , 01/20/2025 9:50 AM
== END | disposition home or self-care (01) ==
LOC: RADBDWWP 07:05
PROVIDERS: ATTEND Internal Medicine
DX: Z12.31 Encounter for screening mammogram for malignant neoplasm of breast (principal); M85.89 Other specified disorders of bone density and structure, multiple sites; R92.333 Mammographic heterogeneous density, bilateral breasts; Z78.0 Asymptomatic menopausal state
CPT/HCPCS: 77063; 77067; 77080